=== PATIENT | male | born 1950 | race Caucasian/White ===

== ENCOUNTER 2020-12-24 16:45 | Outpatient (CLI) | payer MEDICARE, SELFPAY | END 2020-12-24 16:46 | disposition home or self-care (01) | LOC: ANHCOVIDVC 16:45 | PROVIDERS: PCP Family Medicine; Visit Provider Internal Medicine Cardiovascular Disease | DX: Z23 Encounter for immunization (principal) | CPT/HCPCS: 0001A; 91300 ==

== ENCOUNTER 2021-01-14 16:41 | Outpatient (CLI) | payer MEDICARE, SELFPAY | END 2021-01-14 16:42 | disposition home or self-care (01) | LOC: ANHCOVIDVC 16:42 | PROVIDERS: PCP Family Medicine | DX: Z23 Encounter for immunization (principal) | CPT/HCPCS: 0002A; 91300 ==

== ENCOUNTER 2023-10-17 09:55 | Emergency (ER) | payer MEDICARE, SELFPAY ==
--- NOTE | ~2023-10-17 | XR_ITS ---
XR chest 2V DATE: 10/17/2023 11:16 INDICATION: Cough, shortness of breath TECHNIQUE: 2 views COMPARISON: 05/24/2012 two-view chest FINDINGS: There is patchy infiltrate in the right mid and both lower lungs. Chronic mild right diaphragmatic elevation. No pleural effusion or pulmonary vascular congestion or pneumothorax is evident. Normal heart size. IMPRESSION: Patchy right mid and bilateral lower lung infiltrate Reviewed, dictated and finalized at location A. [employer]
[2023-10-17 10:48] VITALS: BP 131/70; PULSE 75; RESP 18; TEMP 36.9; O2SAT 98
--- NOTE | 2023-10-17 11:00 | ED.URI ---
HPI - URI/Sore Throat General Chief Complaint: Upper Respiratory Infection Stated Complaint: cold / flu like symptoms Time Seen by Provider: 10/17/23 10:38 Source: patient Mode of arrival: ambulatory Limitations: no limitations History of Present Illness HPI Narrative: Felix is a 73-year-old male patient presenting to clinic today with complaints cough, congestion, nausea, vomiting, diarrhea, headache, mild shortness of breath x9 days. Reports he is coughing up some green phlegm as well as blowing out green snot from his nose. MD elicited complaint: cough, sore throat and nasal congestion Related Data Home Medications Medication Instructions Recorded Confirmed ascorbic acid (vitamin C) 1,000 mg 1 g PO DAILY 09/13/19 09/13/19 tablet aspirin 81 mg chewable tablet 81 mg PO DAILY 09/13/19 09/13/19 calcium carbonate 600 mg-vitamin 1 tablet PO 09/13/19 D3 10 mcg (400 unit) chewable tablet (Calcium 600 with Vitamin D3) cholecalciferol (vitamin D3) 125 5,000 unit PO DAILY 09/13/19 09/13/19 mcg (5,000 unit) tablet (Vitamin D3) clopidogrel 75 mg tablet 75 mg PO DAILY 09/13/19 09/13/19 ezetimibe 10 mg tablet (Zetia) 10 mg PO DAILY 09/13/19 09/13/19 fluticasone furoate 27.5 2 spray intranasal DAILY 09/13/19 09/13/19 mcg/actuation nasal spray,suspension metoprolol tartrate 25 mg tablet 25 mg PO DAILY 09/13/19 09/13/19 multivitamin 1 cap DAILY 09/13/19 09/13/19 omega 5-wug-ojz-fish oil 1,000 mg 1 cap PO DAILY 09/13/19 09/13/19 (120 mg-180 mg) capsule (Fish Oil) pravastatin 80 mg tablet 80 mg PO HS 09/13/19 09/13/19 Allergies Allergy/AdvReac Type Severity Reaction Status Date / Time No Known Allergies Allergy Verified 10/17/23 11:01 Review of Systems Review of Systems: Pertinent positives per HPI. Patient denies any fever, chills, rash, headache, visual changes, dizziness, shortness of breath, chest pain, palpitations, nausea, vomiting, diarrhea, constipation, abdominal pain, or any urinary issues. PMFSH Comments At the time of my signature, I reviewed and agree with the nursing past medical, surgical, social, and family history. There is no relevant family history pertinent to the patient complaint. Exam Narrative: General: Well-developed, well nourished, in no apparent distress Head: Normocephalic, atraumatic Eyes: Pupils equally round and reactive to light bilaterally, EOM intact, sclera and conjunctive clear, no discharge, lids normal Ears: TMs intact and clear, ear canals clear, no drainage, grossly hearing normal. Nose: Nares patent, green nasal discharge, moderate inflammation, no sinus tenderness. Mouth: Oral pharynx red without lesions or masses, good dentition, MMM. Neck: Supple, trachea midline, no enlargement of anterior or posterior cervical nodes, no thyroid masses or goiter palpable. Cardio: Regular rate and rhythm, s1 and s2 normal, no murmur appreciated. Resp: Crackles heard over the bilateral lower bases, no rhonchi, rales, wheezing or rubs Course Course Emergency Course: Portions of this record may have been created with voice recognition software. Level of Care: Express Care Visit Vital Signs Vital signs: Vital Signs Temperature 36.9 C 10/17/23 10:48 Pulse Rate 75 10/17/23 10:48 Respiratory Rate 18 10/17/23 10:48 Blood Pressure 131/70 10/17/23 10:48 Pulse Oximetry 98 10/17/23 10:48 Oxygen Delivery Room Air 10/17/23 10:48 Temperature 36.9 C 10/17/23 10:48 Pulse Rate 75 10/17/23 10:48 Respiratory Rate 18 10/17/23 10:48 Blood Pressure 131/70 10/17/23 10:48 Pulse Oximetry 98 10/17/23 10:48 Oxygen Delivery Room Air 10/17/23 10:48 Vital signs reviewed MDM - URI/Sore Throat MDM Narrative Medical decision making narrative: At the time of visit patient is resting comfortably on the exam table. Patient appears to be nontoxic. Chest x-ray was performed and shows pneumonia to the right middle lobe and bibasilar
== END 2023-10-17 11:37 | disposition home or self-care (01) ==
PROVIDERS: Emergency Provider Nurse Practitioner Family; PCP Family Medicine
DX: J18.9 Pneumonia, unspecified organism (principal)
CPT/HCPCS: 71046; 99213; G0463

== ENCOUNTER 2024-03-27 14:45 | Emergency (ER) | payer MEDICARE, SELFPAY ==
--- NOTE | ~2024-03-27 | XR_ITS ---
EXAMINATION: XR chest 2V DATE: 03/27/2024 15:17 INDICATION: Cough. Chest congestion. TECHNIQUE: Frontal and lateral views of the chest were obtained. COMPARISON: Chest 2 views 10/17/2023 FINDINGS: There is stable mild elevation of right hemidiaphragm. There is mild atelectasis at the ortega g bases. No pleural effusion or pneumothorax. The heart size is normal. There is an old healed fractu re of right eighth rib. IMPRESSION: 1. Mild atelectasis at the lung bases. Reviewed, dictated and finalized at location A.
--- NOTE | 2024-03-27 14:48 | ED.URI ---
HPI - URI/Sore Throat General Chief Complaint: Upper Respiratory Infection Stated Complaint: Cold symptoms Time Seen by Provider: 03/27/24 14:48 Source: patient Mode of arrival: ambulatory Limitations: no limitations History of Present Illness HPI Narrative: Felix is a 73-year-old male patient presenting to the clinic today with complaints cough with yellow phlegm, chest congestion, and head congestion for the past 3-4 days. He reports no known fever or chills. States that he tried to get a hold of his primary care doctor but the doctor is out of town. States he usually gets a Z-Naldo for the symptoms. I saw him in the urgent care back in September and he had double pneumonia at that time. Denies any shortness of breath. MD elicited complaint: sore throat and nasal congestion Related Data Home Medications Medication Instructions Recorded Confirmed ascorbic acid (vitamin C) 1,000 mg 1 g PO DAILY 09/13/19 09/13/19 tablet aspirin 81 mg chewable tablet 81 mg PO DAILY 09/13/19 09/13/19 calcium carbonate 600 mg-vitamin 1 tablet PO 09/13/19 D3 10 mcg (400 unit) chewable tablet (Calcium 600 with Vitamin D3) cholecalciferol (vitamin D3) 125 5,000 unit PO DAILY 09/13/19 09/13/19 mcg (5,000 unit) tablet (Vitamin D3) clopidogrel 75 mg tablet 75 mg PO DAILY 09/13/19 09/13/19 ezetimibe 10 mg tablet (Zetia) 10 mg PO DAILY 09/13/19 09/13/19 fluticasone furoate 27.5 2 spray intranasal DAILY 09/13/19 09/13/19 mcg/actuation nasal spray,suspension metoprolol tartrate 25 mg tablet 25 mg PO DAILY 09/13/19 09/13/19 multivitamin 1 cap DAILY 09/13/19 09/13/19 omega 6-vgh-ank-fish oil 1,000 mg 1 cap PO DAILY 09/13/19 09/13/19 (120 mg-180 mg) capsule (Fish Oil) pravastatin 80 mg tablet 80 mg PO HS 09/13/19 09/13/19 albuterol sulfate 90 mcg/actuation 2 puff inhalation Q4-6H shortness 03/27/24 aerosol inhaler of breath or wheezing Allergies Allergy/AdvReac Type Severity Reaction Status Date / Time No Known Allergies Allergy Verified 03/27/24 14:57 Review of Systems Review of Systems: Pertinent positives per HPI. Patient denies any fever, chills, rash, headache, visual changes, dizziness, cough, shortness of breath, chest pain, palpitations, nausea, vomiting, diarrhea, constipation, abdominal pain, or any urinary issues. PMFSH Comments At the time of my signature, I reviewed and agree with the nursing past medical, surgical, social, and family history. There is no relevant family history pertinent to the patient complaint. Exam Narrative: General: Well-developed, well nourished, in no apparent distress Head: Normocephalic, atraumatic Eyes: Pupils equally round and reactive to light bilaterally, EOM intact, sclera and conjunctive clear, no discharge, lids normal Ears: TMs intact and clear, ear canals clear, no drainage, grossly hearing normal. Nose: Nares patent, clear discharge, no inflammation, no sinus tenderness. Mouth: Oral pharynx without lesions or masses, good dentition, MMM. Neck: Supple, trachea midline, no enlargement of anterior or posterior cervical nodes, no thyroid masses or goiter palpable. Cardio: Regular rate and rhythm, s1 and s2 normal, no murmur appreciated. Resp: Faint crackles in the right lower posterior base, no rhonchi, wheezing or rubs Course Course Emergency Course: Portions of this record may have been created with voice recognition software. Level of Care: Express Care Visit Vital Signs Vital signs: Vital Signs Temperature 36.8 C 03/27/24 14:56 Pulse Rate 67 03/27/24 14:56 Respiratory Rate 18 03/27/24 14:56 Blood Pressure 138/66 03/27/24 14:56 Pulse Oximetry 97 03/27/24 14:56 Oxygen Delivery Room Air 03/27/24 14:56 Temperature 36.8 C 03/27/24 14:58 Pulse Rate 67 03/27/24 14:58 Respiratory Rate 18 03/27/24 14:58 Blood Pressure 138/66 03/27/24 14:58 Pulse Oximetry 97 03/27/24 14:58 Oxygen Delivery Room Air 03/27/24
[2024-03-27 14:56] VITALS: BP 138/66; PULSE 67; RESP 18; TEMP 36.8; O2SAT 97
[2024-03-27 14:58] VITALS: BP 138/66; PULSE 67; RESP 18; TEMP 36.8; O2SAT 97
== END 2024-03-27 15:27 | disposition home or self-care (01) ==
PROVIDERS: Emergency Provider Nurse Practitioner Family; PCP Family Medicine
DX: J06.9 Acute upper respiratory infection, unspecified (principal); J98.11 Atelectasis; E78.00 Pure hypercholesterolemia, unspecified; K21.9 Gastro-esophageal reflux disease without esophagitis; Z79.82 Long term (current) use of aspirin
CPT/HCPCS: 71046; 99213; G0463

== ENCOUNTER 2024-12-06 14:00 | Emergency (ER) | payer MEDICARE, SELFPAY ==
--- NOTE | ~2024-12-06 | XR_ITS ---
EXAMINATION: XR chest 2V DATE: 12/06/2024 14:32 INDICATION: Cough. Chest pain. TECHNIQUE: Frontal and lateral views of the chest were obtained. COMPARISON: Chest 2 views 04/23/24 FINDINGS: There is chronic mild elevation of right hemidiaphragm. A calcified right lung nodule is co nsistent with old granulomatous disease. No pleural effusion or pneumothorax. The heart size is mukesh l. IMPRESSION: 1. No acute cardiopulmonary disease. Reviewed, dictated and finalized at location A. H NP
--- NOTE | 2024-12-06 14:03 | ED.GENADULT ---
HPI - General Adult General Chief complaint: Upper Respiratory Infection Stated complaint: flu symptoms Time Seen by Provider: 12/06/24 14:04 Source: patient Mode of arrival: wheelchair Limitations: no limitations History of Present Illness HPI narrative: Here with flu symptoms. He reports a 3 day history of cough, nasal congestion, nasal drainage, headache, and some chest pain with cough that started this morning. He reports a feeling of mucus that is getting caught in the breathing tubes area (points to upper chest near where trachea meets the mainstem bronchi). He reports a history of pneumonia, and is wanting to be evaluated for possible pneumonia today. He is using lxwb-[id number]-uosjths cough medicine and DayQuil with some relief. He is also using cough drops and Tylenol as needed. He denies any fevers. He denies nausea, vomiting, or diarrhea. All other systems reviewed and are negative unless otherwise noted in HPI. Related Data Home Medications ?Medication ?Instructions ?Recorded ?Confirmed ?Last Taken ?Type ascorbic acid (vitamin C) 1,000 mg 1 g PO DAILY 09/13/19 09/13/19 09/12/19 History tablet aspirin 81 mg chewable tablet 81 mg PO DAILY 09/13/19 09/13/19 09/13/19 History calcium 600 mg (as carbonate)-vit 1 tablet PO 09/13/19 09/12/19 History D3 10 mcg (400 unit) chewable tablet (Calcium 600 with Vitamin D3) cholecalciferol (vitamin D3) 125 5,000 unit PO DAILY 09/13/19 09/13/19 09/12/19 History mcg (5,000 unit) tablet (Vitamin D3) clopidogrel 75 mg tablet 75 mg PO DAILY 09/13/19 09/13/19 09/13/19 History ezetimibe 10 mg tablet (Zetia) 10 mg PO DAILY 09/13/19 09/13/19 09/13/19 History fluticasone furoate 27.5 2 spray intranasal DAILY 09/13/19 09/13/19 09/13/19 History mcg/actuation nasal spray,suspension metoprolol tartrate 25 mg tablet 25 mg PO DAILY 09/13/19 09/13/19 09/13/19 History multivitamin 1 cap DAILY 09/13/19 09/13/19 Unknown History omega 7-stj-zju-fish oil 1,000 mg 1 cap PO DAILY 09/13/19 09/13/19 09/12/19 History (120 mg-180 mg) capsule (Fish Oil) pravastatin 80 mg tablet 80 mg PO HS 09/13/19 09/13/19 09/12/19 History albuterol sulfate 90 mcg/actuation 2 puff inhalation Q4-6H shortness 03/27/24 Unknown History aerosol inhaler of breath or wheezing Allergies Allergy/AdvReac Type Severity Reaction Status Date / Time No Known Allergies Allergy Verified 12/06/24 14:19 Review of Systems Review of Systems: CONSTITUTIONAL: Denies fever, chills, or sweats. EYES: Denies visual changes, redness, or discharge. ENT: Reports rhinorrhea and congestion. Denies sore throat, or otalgia. Wears hearing aids. CARDIOVASCULAR: Denies palpitations or edema. RESPIRATORY: Denies dyspnea. Reports cough and some pain in the ribs/chest area while coughing. GASTROINTESTINAL: Denies abdominal pain, nausea, vomiting, or diarrhea. GENITOURINARY: Denies dysuria or hematuria. SKIN: Denies rash or itching. MUSCULOSKELETAL: Denies back pain, joint pain, or myalgia. NEUROLOGIC: Denies numbness or weakness. Reports headache. PSYCHIATRIC: Denies anxiety or depression. All other systems reviewed are negative, except as documented in HPI. Exam Narrative: GENERAL: This is a well-nourished, well-developed patient, in no apparent distress. HEAD: normocephalic, atraumatic. EYES: PERRL. Sclera clear/white. Vision is grossly intact. EARS: External ears normal, auditory canals clear and without drainage, TMs with serous fluid without perforation. No TM erythema. Hearing grossly intact with hearing aids. NOSE: External nose normal. + nares with redness and rhinorrhea. THROAT: Mucous membranes moist, posterior pharynx slight erythema. No exudates. NECK: Neck supple, non-tender without lymphadenopathy. CARDIOVASCULAR: Regular rate and rhythm without murmurs, gallops, or rubs. RESPIRATORY: Breath sounds equal bilaterally. +mild wheeze with cough, otherwise no wheezing in LS. SKIN: warm, Dry, intact with no suspicious lesions or rash, good texture and turgor. NEURO: awake, alert, and oriented to person, place and time. There were no obvious focal neurologic abnormalities. EXTREMITIES: No joint tenderness, effusion, or edema noted. Course Course Emergency Course: Patient is aware of diagnosis, understands and agrees to treatment plan. Anticipatory guidance was given. Patient agrees to follow-up as directed and is aware of reasons to seek care at the emergency department. Please be advised this is a medical document. It is intended for [id number] communication. It is written in medical language and may contain unfamiliar abbreviations or verbiage. Medical documents are intended to carry relevant information, facts as evident, and the clinical opinion of the practitioner at the time of the encounter. This report may have been done utilizing a voice recognition system. Attempts have been made to correct errors. However, there may be uncorrected grammatical, spelling, and recognition errors present. The file time of this note does not necessarily represent the time the patient was seen. Level of Care: Express Care Visit Vital Signs Vital signs: Vital Signs Temperature 36.4 C 12/06/24 14:12 Pulse Rate 61 12/06/24 14:12 Respiratory Rate 18 12/06/24 14:12 Blood Pressure 147/86 H 12/06/24 14:12 Pulse Oximetry 98 12/06/24 14:12 Oxygen Delivery Room Air 12/06/24 14:12 Temperature 36.4 C 12/06/24 14:12 Pulse Rate 61 12/06/24 14:12 Respiratory Rate 18 12/06/24 14:12 Blood Pressure 147/86 H 12/06/24 14:12 Pulse Oximetry 98 12/06/24 14:12 Oxygen Delivery Room Air 12/06/24 14:12 reviewed Medical Decision Making MDM Narrative Medical decision making narrative: Results of flu test reviewed with patient. Patient was positive for Flu A, and negative for Flu B and COVID. X-ray results discussed with patient and he was provided a printed copy of the report. Discussed physical exam findings with patient and reviewed prescriptions. Advised supportive measures and reviewed signs and symptoms for patient to return to clinic or go to the ER. Patient verbalized understanding. Vital Signs Vital Signs: Vital Signs Temperature 36.4 C 12/06/24 14:12 Pulse Rate 61 12/06/24 14:12 Respiratory Rate 18 12/06/24 14:12 Blood Pressure 147/86 H 12/06/24 14:12 Pulse Oximetry 98 12/06/24 14:12 Oxygen Delivery Room Air 12/06/24 14:12 Temperature 36.4 C 12/06/24 14:12 Pulse Rate 61 12/06/24 14:12 Respiratory Rate 18 12/06/24 14:12 Blood Pressure 147/86 H 12/06/24 14:12 Pulse Oximetry 98 12/06/24 14:12 Oxygen Delivery Room Air 12/06/24 14:12 Reviewed. BP elevated today likely related to OTC cold medications. Reviewed recommendations to use medications that do not raise blood pressure for symptom relief such as Coricidin HBP. Patient verbalized understanding. Lab Data Labs: Lab Results 12/06/24 Range/Units 14:24 POC Influenza A Ag Positive (Negative) POC Influenza B Ag Negative (Negative) POC SARS CoV-2 Ag Negative (Negative) reviewed. Imaging Data My impression: Agree with radiologist. Radiologist's impression: EXAMINATION: XR chest 2V DATE: 12/06/2024 14:32 INDICATION: Cough. Chest pain. TECHNIQUE: Frontal and lateral views of the chest were obtained. COMPARISON: Chest 2 views 04/23/24 FINDINGS: There is chronic mild elevation of right hemidiaphragm. A calcified right lung nodule is consistent with old granulomatous disease. No pleural effusion or pneumothorax. The heart size is normal. IMPRESSION: 1. No acute cardiopulmonary disease. Discharge Plan Discharge Clinical Impression: Bronchitis, Influenza A Patient Disposition: Home, Self-Care Condition: Stable Instructions: Antibiotic Form, Influenza (DC), Acute Bronchitis (ED), Acute Cough (ED) Additional Instructions: You were diagnosed today with influenza a and bronchitis. Cover all coughs. Push fluids and eat foods that contain fluid such as applesauce. Rest. Wear a mask when leaving the house until you are fever free for 24 hours. Avoid going places where you may come in contact with people who are immunocompromised. Do not share eating or drinking utensils. Use good handwashing techniques. You may use [id number] Tylenol and/or ibuprofen by mouth as needed and as directed on packaging for pain and fever. Read packing of all over the counter medications and take them only as recommended on the label. Avoid medications that increase your blood pressure, and try products that do not increase blood pressure such as Coricidin products. Take medications as prescribed. Follow printed instructions provided. Follow-up with primary care provider, and have blood pressure checked at your follow up visit. Go to the ER for any worsening symptoms or concerns. Patient Language: Latvian Prescriptions: New azithromycin 250 mg tablet See Rx Instructions .ROUTE .COMPLEX Qty: 6 0RF Rx Instructions: For 250 mg dose pack: take 500 mg today (day 1), then 250 mg for 4 days (days 2-5) benzonatate 200 mg capsule 200 mg PO TID PRN (Reason: cough) Qty: 15 0RF methylprednisolone [Medrol (Naldo)] 4 mg tablets,dose pack See Rx Instructions PO .COMPLEX Qty: 21 0RF Rx Instructions: orally per package directions No Action albuterol sulfate 90 mcg/actuation HFA aerosol inhaler 2 puff inhalation Q4-6H prednisone 20 mg tablet 40 mg PO DAILY 5 Days Qty: 10 0RF clopidogrel 75 mg Tablet 75 mg PO DAILY pravastatin 80 mg Tablet 80 mg PO HS aspirin 81 mg Tablet,Chewable 81 mg PO DAILY multivitamin Capsule 1 cap DAILY ezetimibe [Zetia] 10 mg Tablet 10 mg PO DAILY metoprolol tartrate 25 mg Tablet 25 mg PO DAILY fluticasone furoate 27.5 mcg/actuation [place],Suspension 2 spray INTRANASAL DAILY ascorbic acid (vitamin C) 1,000 mg Tablet 1 g PO DAILY Calcium 600 with Vitamin D3 600 mg(1,500mg) -400 unit Tablet,Chewable 1 tablet PO cholecalciferol (vitamin D3) [Vitamin D3] 5,000 unit Tablet 5,000 unit PO DAILY omega 3-dvv-wza-fish oil [Fish Oil] 1,000 mg (120 mg-180 mg) Capsule 1 cap PO DAILY esomeprazole magnesium 20 mg capsule,delayed release(DR/EC) 20 mg PO DAILY Qty: 30 0RF Follow-up/Referrals: Tor,MD Matty [Primary Care Provider] - Time of Disposition: 14:57
--- OUTSIDE RECORDS SUMMARY | 2024-12-06 14:05 | XMS_ITS | Data Portability ---
Author Organization [place] [facility] [employer], Main Office Address [address] [place] [address] Care Team Providers Care Senior Client Advisor Name Role Phone MATTY LENTZ Primary Care Provider [phone] Assessment Encounter Date Assessment Date Assessment LastModified by Organization Details LastModified Time 05/29/2024 05/29/2024 Assessment: Cough Dyspnea Right hemidiaphragm elevation Bibasilar atelectasis Plan: The following were reviewed and explained to the patient: primary care/referral note Chest 2 views 03/27/24 right hemidiaphragm elevation, bibasilar atelectasis Incentive spirometer x 5 minutes every 2 hours while awake to reverse and prevent further atelectasis. Cough/Dyspnea workup will be done as follows: Respiratory allergen panel for [facility] Serum IgE Serum total IgG, IgG1, IgG2, IgG3, IgG4 Xsmgi-2-tlcdrzmhzom phenotype and level TB stimulated gamma interferon B-type natriuretic peptide (BNP) Eosinophil count Complete pulmonary function testing (PFT) Sniff test for right hemidiaphragm Adherence to therapy is advocated. Nonadherence may lead to treatment failure, further progression of the condition, and other complications. Hospitals admissions are often the result of individuals not taking prescription medications accurately. Alternatively, greater adherence to medication regimens have shown to lower rates of hospitalization and decrease total medical costs in patients with chronic medical conditions. Advocated influenza vaccination annually and pneumonia vaccination [place]. Advocated weight loss through diet and exercise. Patient's ideal body weight according to height and gender is up to 155 lbs. Encouraged patient to adjust caloric intake to maintain/achieve ideal body weight, emphasizing on fruits, vegetables, whole grains, and fat-free or low-fat products. These include lean meats, poultry, fish, beans, eggs, and nuts and foods that are low in saturated fats, trans-fats, cholesterol, salt (sodium), and glycemic index. Stressed the importance of regular exercise up to the patient's capacity limits. In this case, we recommend 20 min daily walking, 2 days a week of resistance training. Patient to monitor BP daily and bring records to PCP for further management. 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 Annual labs: 02/23/22. Annual labs: 02/26/21. Annual labs: 10/04/19. Annual labs at [place]: 10/13/18. EKG & CXR: 10/11/18. X-ray Rt le08/15/18. Annual labs: 03/28/18. D/w pt about his findings, recent Labs & imagines and further plan of care. Will do routine labs. Pt still declined for any imagines. Pt declined for any repeat lab after 3-6 months and wants to come here annually. Pt declined for Metformin for his Pre-DM. All meds verified with pt. Meds as directed. Cont OTC shoe inserts as directed prn. Diet and exercise explained in detail. Fall risk precautions explained. BP diary education given and call us if any concerns. Advised pt to f/u with his cardio regarding anticoagulation regimen. Pt agreed. Educated pt about alarming symptoms to monitor at home and call us back or get checked in ED. Cont f/u with Cardio at [facility] as per schedule. Cont f/u with Derm at [facility] as per schedule. Cont f/u with Ophtho at [facility] as per schedule. Cont f/u with GI at [facility] as per schedule. Cont f/u with ENT at [facility] as per schedule. Pt had orders for work up for elevated LFTs in the past, but pt decided not to go for it. Pt declined for LDCT chest/US AAA/repeat DEXA. HM: Colonoscopy - 01/09, normal as per pt. Cont f/u with GI as per schedule. US AAA - Pt declined. DEXA - 10/10/18, Osteopenia ++. Pt declined for any future scan. Tdap - 06/04/15. Flu - 08/14. Pneumo - 06/08, 08/10. Shingrix - At pharmacy/HD. F/u in 2-3 weeks. B/l ear flushing on next visit. Annual labs in 03/17. 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 CXR: 03/27/24. Annual labs: 02/23/22. Annual labs: 02/26/21. Annual labs: 10/04/19. Annual labs at [place]: 10/13/18. EKG & CXR: 10/11/18. X-ray Rt le08/15/18. Annual labs: 03/28/18. D/w pt about his findings, recent Labs & imagines and further plan of care. Pt declined for any repeat lab/A1c check after 3-4 months and wants to come here annually. Pt declined for Metformin for his Pre-DM. All meds verified with pt. Meds as directed. Cont OTC shoe inserts as directed prn. Diet and exercise explained in detail. Fall risk precautions explained. BP diary education given and call us if any concerns. Advised pt to f/u with his cardio regarding anticoagulation regimen. Pt agreed. Educated pt about alarming symptoms to monitor at home and call us back or get checked in ED. Cont f/u with Pulmo as per schedule. Cont f/u with Cardio at [facility] as per schedule. Cont f/u with Derm at [facility] as per schedule. Cont f/u with Ophtho at [facility] as per schedule. Cont f/u with GI at [facility] as per schedule. Cont f/u with ENT at [facility] as per schedule. Pt had orders for work up for elevated LFTs in the past, but pt decided not to go for it. Pt declined for LDCT chest/US AAA/repeat DEXA. HM: Colonoscopy - 01/09, normal as per pt. Cont f/u with GI as per schedule. US AAA - Pt declined. DEXA - 10/10/18, Osteopenia ++. Pt declined for any future scan. Tdap - 06/04/15. Flu - 08/14. Pneumo - 06/08, 08/10. Shingrix - At pharmacy/HD. F/u PRN/Annually (Pt doesn't want to come sooner). Annual labs in 06/18. [email or web address] Not available 07/04/2024 09:40:50 07/18/2024 07/18/2024 Assessment: Cough, resolving Right hemidiaphragm elevation, no paralysis Bibasilar atelectasis Plan: The following were reviewed and explained to the patient: Chest 2 views 03/27/24 right hemidiaphragm elevation, bibasilar atelectasis Fluoroscopy sniff test 06/14/24 mild right hemidiaphragm elevation but no paralysis, normal symmetric excursions of both hemidiaphragm Lab data 05/29/24 PFT 07/18/24 nl FEV1/FVC, FEV1 2.51 L (100%), TLC 5.56 L (101%), RV 1.95 L (84%), DLCO 101% Cough may be the initial manifestation of drug-related airway hyper-responsiveness or bronchoconstriction that is described with -blockers; associated wheeze and dyspnea may occur. -blockers (including eye drops) cause bronchoconstriction via bronchial 2 receptor blockade. A meta-analysis has confirmed no evidence of long-term decline in lung function in reversible obstructive lung disease with cardio-selective -blockers (atenolol, metoprolol, bisoprolol). A short-term decline of 8% in forced expiratory volume in 1 second (FEV1) was seen, but this was not sustained. In addition, ferry terminal agent respiratory symptoms and use of inhaled -agonists were not increased. Carvedilol has also been shown to be well tolerated (in terms of lung function indices and aerobic performance) despite being a non-selective -tani, possibly because of mild bronchodilation from its -blocking activity. Incentive spirometer x 5 minutes every 2 hours while awake to reverse and prevent further atelectasis. Cough/Dyspnea workup will be done as follows: Methacholine challenge testing - patient does not desire further testing Adherence to therapy is advocated. Nonadherence may lead to treatment failure, further progression of the condition, and other complications. Hospitals admissions are often the result of individuals not taking prescription medications accurately. Alternatively, greater adherence to medication regimens have shown to lower rates of hospitalization and decrease total medical costs in patients with chronic medical conditions. Advocated influenza vaccination annually and pneumonia vaccination [place]. Advocated weight loss through diet and exercise. Patient's ideal body weight according to height and gender is up to 155 lbs. Encouraged patient to adjust caloric intake to maintain/achieve ideal body weight, emphasizing on fruits, vegetables, whole grains, and fat-free or low-fat products. These include lean meats, poultry, fish, beans, eggs, and nuts and foods that are low in saturated fats, trans-fats, cholesterol, salt (sodium), and glycemic index. Stressed the importance of regular exercise up to the patient's capacity limits. In this case, we recommend 20 min daily walking, 2 days a week of resistance training. Patient to monitor BP daily and bring records to PCP for further management. Follow-up: as needed Not available 07/18/2024 15:31:49 Plan of Treatment Reminders Order Date Submit Date Provider Last Modified By Organization Details Last Modified Time Details Appointments Physical/ Annual Wellness 30 2024 08:30A Eyad Lentz MD Not available Not available Not available Lab alpha-1-a ntitrypsi n (aat) phenotype , serum 2023 024 [facility] ([facility] [address] [place], [address], 06/03/2024 18:11:32 BNP (B-type natriuret ic peptide), serum or plasma 2023 024 BRENDA [facility] (Lab), [address] [place], [address], 05/29/2024 15:53:24 ige, total, serum 2023 024 [email or web address] 2 [facility] (Lab), [address] [place], [address], 10/04/2024 14:08:12 tb (M tuberculo sis), ifn-gamma bernabe, blood 2023 024 [email or web address] 2 [facility] (Lab), [address] [place], [address], 10/04/2024 14:08:12 eosinophi l count, manual, blood (OBS) 2023 024 [email or web address] 2 [facility] (Lab), [address] [place], [address], 10/04/2024 14:08:13 [address] s 1+2+3+4, serum 2023 024 [email or web address] 2 [facility] (Lab), [address] [place], [address], 10/04/2024 14:08:13 respirato ry allergen panel, [facility] A, serum 2023 024 [email or web address] 2 [facility] (Lab), [address] [place], [address], 10/04/2024 14:08:13 respirato ry allergen panel - [facility] b 2023 024 2 [facility] (Lab), [address] [place], [address], 10/04/2024 14:08:13 CBC w/ auto diff 2023 024 [facility] (Lab), [address] [place], [address], 06/14/2024 14:02:01 CMP, serum or plasma 2023 024 [facility] (Lab), [address] [place], [address], 06/14/2024 17:00:37 urinalysi s complete, reflex culture [address] (Lab), [address] [place], [address], 06/21/2024 08:38:17 magnesium , serum or plasma 2023 024 [facility] (Lab), [address] [place], [address], 06/14/2024 17:00:41 lipid panel, serum 2023 024 [facility] (Lab), [address] [place], [address], 06/14/2024 17:00:44 TSH, serum or plasma 2023 024 [facility] (Lab), [address] [place], [address], 06/14/2024 17:48:19 PSA, serum or plasma [address] (Lab), [address] [place], [address], 06/21/2024 08:38:17 vitamin D, 25-hydrox y, total, serum 2023 024 [email or web address] (Lab), [address] [place], [address], 06/21/2024 08:38:17 Referral None recorded. Procedures None recorded. Surgeries None recorded. Imaging RF, diaphragm - SNIFF TESTINGNo auth needed 2023 024 [facility] ([facility] [address] [place], [address], 06/14/2024 11:04:30 Medication Orders amoxicill in 875 mg-potass ium clavulana te 125 mg tablet [address] [id number], [address], [place], [id number], 05/14/2024 10:56:28 Medrol (Naldo) 4 mg tablets in a dose pack [address] [id number], [address], [place], [id number], 05/14/2024 10:57:01 benzonata te 200 mg capsule [address] [id number], [address], [place], [id number], 05/14/2024 10:56:34 Debrox 6.5 % ear drops 2023 024 [email or web address] [facility], [address] [place] [address], [address], 07/18/2024 15:08:07 Flonase Allergy Relief 50 mcg/actua tion nasal spray,jen pension 2023 024 [email or web address] [facility], [facility], [place], [address], 06/14/2024 14:38:50 esomepraz ole magnesium 20 mg capsule,d elayed release 2023 024 [facility], [place], [address], 06/14/2024 10:32:32 esomepraz ole magnesium 20 mg capsule,d elayed release 2023 024 [facility], [place] [address], 07/04/2024 09:30:29 Patient TargetsNo targets recorded. Patient Instructions Encounter Date Encounter Id Patient Instructions Last Modified By Organization Details Last Modified Time 05/29/2024 [id number] complete PFT w/ post bronchodilator spirometry* - No auth needed [email or web address] Not available 07/03/2024 12:40:44 Reason for Referral None Reported. Results Created Date Observation Date Name Description Value Unit Range Abnormal Flag Note LastModifiedBy Organization Detail LastModifiedTime 06/14/20 24 06/14/2024 CBC/C OMPLE TE BLD COUNT W/DIF F white blood cells 5.7 x10'3 /uL 4.2-10 .8 Not Available [facility] (Lab) [address] [place], [address], 06/14/2024 14:02:01 06/14/20 24 06/14/2024 CBC/C OMPLE TE BLD COUNT W/DIF F red blood cells 4.25 x10'6 /uL 4.10-5 .80 Not Available [facility] (Lab) [address] [place], [address], 06/14/2024 14:02:01 06/14/20 24 06/14/2024 CBC/C OMPLE TE BLD COUNT W/DIF F hemoglobin 13.1 g/dL 13.2-1 7.0 low Not Available [facility] (Lab) [address] [place], [address], 06/14/2024 14:02:01 08/21/20 24 06/14/2024 CBC/C OMPLE TE BLD COUNT W/DIF F hematocrit 40.2 % 39.3-5 0.0 Not Available [facility] (Lab) [address] [place], [address], 06/14/2024 14:02:01 06/14/20 24 06/14/2024 CBC/C OMPLE TE BLD COUNT W/DIF F mean red cell volume 94.6 fL 80.0-9 7.0 Not Available [facility] (Lab) [address] [place], [address], 06/14/2024 14:02:01 06/14/20 24 06/14/2024 CBC/C OMPLE TE BLD COUNT W/DIF F mean red cell hemoglobin 30.8 pg 27.0-3 3.0 Not Available [facility] (Lab) [address] [place], [address], 06/14/2024 14:02:01 06/14/20 24 06/14/2024 CBC/C OMPLE TE BLD COUNT W/DIF F mean RBC HGB concentratio n 32.6 g/dL 31.0-3 6.0 Not Available [facility] (Lab) [address] [place], [address], 06/14/2024 14:02:01 06/14/20 24 06/14/2024 CBC/C OMPLE TE BLD COUNT W/DIF F red cell distribution width 13.3 % 11.8-1 5.5 Not Available [facility] (Lab) [address] [place], [address], 06/14/2024 14:02:01 06/14/20 24 06/14/2024 CBC/C OMPLE TE BLD COUNT W/DIF F platelets 196 x10'3 /uL 150-40 0 Not Available [facility] (Lab) [address] [place], [address], 06/14/2024 14:02:01 06/14/20 24 06/14/2024 CBC/C OMPLE TE BLD COUNT W/DIF F mean platelet volume 11.8 fL 9.0-12 .4 Not Available [facility] (Lab) [address] [place], [address], 06/14/2024 14:02:01 06/14/20 24 06/14/2024 CBC/C OMPLE TE BLD COUNT W/DIF F neutrophils 65.3 % 39.0-7 2.0 Not Available [facility] (Lab) [address] [place], [address], 06/14/2024 14:02:01 06/14/20 24 06/14/2024 CBC/C OMPLE TE BLD COUNT W/DIF F lymphocytes 22.9 % 16.0-4 7.0 Not Available [facility] (Lab) [address] [place], [address], 06/14/2024 14:02:01 06/14/20 24 06/14/2024 CBC/C OMPLE TE BLD COUNT W/DIF F monocytes 8.4 % 5.0-12 .0 Not Available [facility] (Lab) [address] [place], [address], 06/14/2024 14:02:01 06/14/20 24 06/14/2024 CBC/C OMPLE TE BLD COUNT W/DIF F eosinophils 2.5 % 1.0-7. 0 Not Available [facility] (Lab) [address] [place], [address], 06/14/2024 14:02:01 06/14/20 24 06/14/2024 CBC/C OMPLE TE BLD COUNT W/DIF F basophils 0.7 % 0.0-2. 0 Not Available [facility] (Lab) [address] [place], [address], 06/14/2024 14:02:01 06/14/20 24 06/14/2024 CBC/C OMPLE TE BLD COUNT W/DIF F immature granulocytes 0.2 % 0.00-0 .50 Not Available [facility] (Lab) [address] [place], [address], 06/14/2024 14:02:01 06/14/20 24 06/14/2024 CBC/C OMPLE TE BLD COUNT W/DIF F neutrophils, absolute count 3.73 x10'3 /uL 1.5-8. 0 Not Available [facility] (Lab) [address] [place], [address], 06/14/2024 14:02:01 06/14/20 24 06/14/2024 CBC/C OMPLE TE BLD COUNT W/DIF F lymphocytes, absolute count 1.31 x10'3 /uL 1.07-3 .43 Not Available [facility] (Lab) [address] [place], [address], 06/14/2024 14:02:01 06/14/20 24 06/14/2024 CBC/C OMPLE TE BLD COUNT W/DIF F monocytes, absolute count 0.48 x10'3 /uL 0.29-0 .99 Not Available [facility] (Lab) [address] [place], [address], 06/14/2024 14:02:01 06/14/20 24 06/14/2024 CBC/C OMPLE TE BLD COUNT W/DIF F eosinophils, absolute count 0.14 x10'3 /uL 0.02-0 .53 Not Available [facility] (Lab) [address] [place], [address], 06/14/2024 14:02:01 06/14/20 24 06/14/2024 CBC/C OMPLE TE BLD COUNT W/DIF F basophils, absolute count 0.04 x10'3 /uL 0.01-0 .08 Not Available [facility] (Lab) [address] [place], [address], 06/14/2024 14:02:01 06/14/20 24 06/14/2024 CBC/C OMPLE TE BLD COUNT W/DIF F immature granulocytes ,absolute 0.01 x10'3 /uL 0.00-0 .05 Not Available [facility] (Lab) [address] [place], [address], 06/14/2024 14:02:01 06/14/20 24 06/14/2024 CBC/C OMPLE TE BLD COUNT W/DIF F nucleated red blood cells 0.0 % -0 Not Available [facility] (Lab) [address] [place], [address], 06/14/2024 14:02:01 06/14/20 24 06/14/2024 CBC/C OMPLE TE BLD COUNT W/DIF F NRBC# 0.00 x10'3 /uL Not Available [facility] (Lab) [address] [place], [address], 06/14/2024 14:02:01 06/14/20 24 06/14/2024 URINA LYSIS COMPL ETE/I RIS W/RFX color YELLOW Not Available [facility] (Lab) [address] [place], [address], 06/14/2024 14:08:26 06/14/20 24 06/14/2024 URINA LYSIS COMPL ETE/I RIS W/RFX appear CLEAR Not Available [facility] (Lab) [address] [place], [address], 06/14/2024 14:08:26 06/14/20 24 06/14/2024 URINA LYSIS COMPL ETE/I RIS W/RFX specific gravity 1.025 1.001- 1.030 Not Available [facility] (Lab) [address] [place], [address], 06/14/2024 14:08:26 06/14/20 24 06/14/2024 URINA LYSIS COMPL ETE/I RIS W/RFX pH 6.0 pH_un its 5.0-9. 0 Not Available [facility] (Lab) [address] [place], [address], 06/14/2024 14:08:26 06/14/20 24 06/14/2024 URINA LYSIS COMPL ETE/I RIS W/RFX leukocytes NEGATI VE radha/u L negati ve- Not Available [facility] (Lab) [address] [place], [address], 06/14/2024 14:08:26 06/14/20 24 06/14/2024 URINA LYSIS COMPL ETE/I RIS W/RFX nitrite NEGATI VE negati ve- Not Available [facility] (Lab) [address] [place], [address], 06/14/2024 14:08:26 06/14/20 24 06/14/2024 URINA LYSIS COMPL ETE/I RIS W/RFX protein NEGATI VE mg/dL negati ve- Not Available [facility] (Lab) [address] [place], [address], 06/14/2024 14:08:26 06/14/20 24 06/14/2024 URINA LYSIS COMPL ETE/I RIS W/RFX glucose NORMAL mg/dL normal - Not Available [facility] (Lab) [address] [place], [address], 06/14/2024 14:08:26 06/14/20 24 06/14/2024 URINA LYSIS COMPL ETE/I RIS W/RFX ketones NEGATI VE mg/dL negati ve- Not Available [facility] (Lab) [address] [place], [address], 06/14/2024 14:08:26 06/14/20 24 06/14/2024 URINA LYSIS COMPL ETE/I RIS W/RFX urobilinogen NORMAL mg/dL normal - Not Available [facility] (Lab) [address] [place], [address], 06/14/2024 14:08:26 06/14/20 24 06/14/2024 URINA LYSIS COMPL ETE/I RIS W/RFX bilirubin NEGATI VE mg/dL negati ve- Not Available [facility] (Lab) [address] [place], [address], 06/14/2024 14:08:26 06/14/20 24 06/14/2024 URINA LYSIS COMPL ETE/I RIS W/RFX blood NEGATI VE mg/dL negati ve- Not Available [facility] (Lab) [address] [place], [address], 06/14/2024 14:08:26 06/14/20 24 06/14/2024 URINA LYSIS COMPL ETE/I RIS W/RFX white blood cells 0-8 /i??h pfi?? 0-8 Not Available [facility] (Lab) [address] [place], [address], 06/14/2024 14:08:26 06/14/20 24 06/14/2024 URINA LYSIS COMPL ETE/I RIS W/RFX red blood cells 0-4 /i??h pfi?? 0-4 Not Available [facility] (Lab) [address] [place], [address], 06/14/2024 14:08:26 06/14/20 24 06/14/2024 URINA LYSIS COMPL ETE/I RIS W/RFX bacteria NONE Not Available [facility] (Lab) [address] [place], [address], 06/14/2024 14:08:26 06/14/20 24 06/14/2024 URINA LYSIS COMPL ETE/I RIS W/RFX mucous OCCASI ONAL /i??l pfi?? abnormal Not Available [facility] (Lab) [address] [place], [address], 06/14/2024 14:08:26 06/14/20 24 06/14/2024 URINA LYSIS COMPL ETE/I RIS W/RFX squamous epithelial NONE /i??l pfi?? abnormal Not Available [facility] (Lab) [address] [place], [address], 06/14/2024 14:08:26 06/14/20 24 06/14/2024 COMPR EHENS SHAUN METAB OLIC PANEL sodium 143 mmol/ L 137-14 5 Not Available [facility] (Lab) [address] [place], [address], 06/14/2024 21:38:56 06/14/20 24 06/14/2024 COMPR EHENS SHAUN METAB OLIC PANEL potassium 4.1 mmol/ L 3.5-5. 1 Not Available [facility] (Lab) [address] [place], [address], 06/14/2024 21:38:56 06/14/20 24 06/14/2024 COMPR EHENS SHAUN METAB OLIC PANEL chloride 110 mmol/ L 98-107 high Not Available [facility] (Lab) [address] [place], [address], 06/14/2024 21:38:56 06/14/20 24 06/14/2024 COMPR EHENS SHAUN METAB OLIC PANEL carbon dioxide 26 mmol/ L 22-30 Not Available [facility] (Lab) [address] [place], [address], 06/14/2024 21:38:56 06/14/20 24 06/14/2024 COMPR EHENS SHAUN METAB OLIC PANEL anion gap 11.1 mmol/ L 14-22 low Not Available [facility] (Lab) [address] [place], [address], 06/14/2024 21:38:56 06/14/20 24 06/14/2024 COMPR EHENS SHAUN METAB OLIC PANEL glucose 111 mg/dL 70-99 high Not Available [facility] (Lab) [address] [place], [address], 06/14/2024 21:38:56 06/14/20 24 06/14/2024 COMPR EHENS SHAUN METAB OLIC PANEL BUN 15 mg/dL 8-19 Not Available [facility] (Lab) [address] [place], [address], 06/14/2024 21:38:56 06/14/20 24 06/14/2024 COMPR EHENS SHAUN METAB OLIC PANEL creatinine 0.83 mg/dL 0.66-1 .25 Not Available [facility] (Lab) [address] [place], [address], 06/14/2024 21:38:56 06/14/20 24 06/14/2024 COMPR EHENS SHAUN METAB OLIC PANEL GFR >60 Refer ence Range : [place] [facility] GFR Healt hy Adult : >60 mL/mi n/1.7 3 m2 Chron ic Kidne y Disea se: 15-60 mL/mi n/1.7 3 m2 Kidne y Failu re: <15/m L/min /1.73 m2 [email or web address] The MDRD study equat ion has not been valid ated in child kike <18 years of age; pregn ant women ; the elder ly >85 years of age; or in some racia l or ethni c subgr oups, such as Hispa nics. Outsi de the valid ated terrell eters , estim ated GFR is less accur ate, requi ring clini joss judgm ent on a case- by-ca se basis . Clini joss inter preta tion for other races and ages must be made by the clini lesly. The MDRD study equat ion has not been valid ated for the evalu ation of serum creat inine relat ed to nutri libia l statu s or medic ation usage . For perso ns <18 years of age, a pedia tric GFR calcu lator is avail able on the F websi te: https ://sean w.ashish juarezy.o rg/pr ofess ional s/kdo qi/gf r_cal culat or Not Available [facility] (Lab) [address] [place], [address], 06/14/2024 21:38:56 06/14/20 24 06/14/2024 COMPR EHENS SHAUN METAB OLIC PANEL alkaline phosphatase 42 U/L 38-126 Not Available [facility] (Lab) [address] [place], [address], 06/14/2024 21:38:56 06/14/20 24 06/14/2024 COMPR EHENS SHAUN METAB OLIC PANEL alanine aminotransfe rase 30 U/L 0-50 Not Available [facility] (Lab) [address] [place], [address], 06/14/2024 21:38:56 06/14/20 24 06/14/2024 COMPR EHENS SHAUN METAB OLIC PANEL aspartate aminotransfe rase 39 U/L 15-46 Not Available [facility] (Lab) [address] [place], [address], 06/14/2024 21:38:56 06/14/20 24 06/14/2024 COMPR EHENS SHAUN METAB OLIC PANEL bilirubin, total 0.70 mg/dL 0.20-1 .30 Not Available [facility] (Lab) [address] [place], [address], 06/14/2024 21:38:56 06/14/20 24 06/14/2024 COMPR EHENS SHAUN METAB OLIC PANEL calcium 9.7 mg/dL 8.4-10 .2 Not Available [facility] (Lab) [address] [place], [address], 06/14/2024 21:38:56 06/14/20 24 06/14/2024 COMPR EHENS SHAUN METAB OLIC PANEL total protein 7.0 g/dL 6.3-8. 2 Not Available [facility] (Lab) [address] [place], [address], 06/14/2024 21:38:56 06/14/20 24 06/14/2024 COMPR EHENS SHAUN METAB OLIC PANEL albumin 4.3 g/dL 3.0-4. 4 Not Available [facility] (Lab) [address] [place], [address], 06/14/2024 21:38:56 06/14/20 24 06/14/2024 COMPR EHENS SHAUN METAB OLIC PANEL globulin 2.7 g/dL 2.6-4. 2 Not Available [facility] (Lab) [address] [place], [address], 06/14/2024 21:38:56 06/14/20 24 06/14/2024 COMPR EHENS SHAUN METAB OLIC PANEL A/G ratio 1.6 ratio 1.0-2. 0 Not Available [facility] (Lab) [address] [place], [address], 06/14/2024 21:38:56 06/14/20 24 06/14/2024 MAGNE SIUM magnesium 2.2 mg/dL 1.6-2. 3 Not Available [facility] (Lab) [address] [place], [address], 06/14/2024 17:00:41 06/14/20 24 06/14/2024 LIPID PANEL cholesterol 141 mg/dL 140-19 9 NIH TEJINDER NSUS RECOM MENDA TION FOR PIPPA STERO L: ADULT CHILD LOW RISK: <200 <170 BORDE RLINE : <200- 239 ----- HIGH RISK: >240 >200 Not Available [facility] (Lab) [address] [place], [address], 06/14/2024 17:00:44 06/14/20 24 06/14/2024 LIPID PANEL triglyceride s 97 mg/dL 0-150 NIH TEJINDER NSUS REPOR T RECOM MENDA TION FOR TRIGL YCERI RADHA: ADULT CHILD LOW RISK: <150 ----- BODER LINE: 150-1 99 ----- HIGH RISK: >200 ----- Not Available [facility] (Lab) [address] [place], [address], 06/14/2024 17:00:44 06/14/20 24 06/14/2024 LIPID PANEL HDL cholesterol 46 mg/dL 40- Not Available [facility] (Lab) [address] [place], [address], 06/14/2024 17:00:44 06/14/20 24 06/14/2024 LIPID PANEL LDL cholesterol, calculated 76 mg/dL 0-130 NIH TEJINDER NSUS REPOR T RECOM MENDA TIONS FOR LDL: ADULT CHILD LOW RISK <130 <110 (OPTI MAL LDL) <100 ----- BORDE RLINE : 130-1 59 ----- HIGH RISK: >160 >130 A TRIGL YCERI DE RESUL T >400 INVAL IDATE S THE CALCU LATIO N FOR LDL FRACT IONAT ION - THE LDL RESUL T WILL NOT BE REPOR ENDY. Not Available [facility] (Lab) [address] [place], [address], 06/14/2024 17:00:44 06/14/20 24 06/14/2024 VITAM IN D 25-HY DROXY [id number] 83.5 NG/mL 30-100 Vitam in D Statu s: Defic ient: <20 ng/mL Insuf ficie nt: 20-29 ng/mL Suffi cient : 30-10 0 ng/mL Not Available [facility] (Lab) [address] [place], [address], 06/14/2024 17:39:32 06/14/20 24 06/14/2024 PSA SCREE N PSA medicare screen 1.50 NG/mL 0.00-4 .00 Not Available [facility] (Lab) [address] [place], [address], 06/14/2024 17:48:18 06/14/20 24 06/14/2024 TSH thyroid-stim ulating hormone 2.860 uIU/m L 0.465- 4.680 Not Available [facility] (Lab) [address] [place], [address], 06/14/2024 17:48:19 03/27/20 24 03/27/2024 XR, chest , 2 view No observ ation record ed. [email or web address] [facility] [address], [place], [address], 04/03/2024 15:59:00 06/05/20 24 03/27/2024 XR, chest , 2 view No observ ation record ed. [email or web address] Not Available 2023 10:27:37 06/14/20 24 06/14/2024 imagi ng/di agnos tic resul t No observ ation record ed. [email or web address] [facility] [address] [place], [address], 07/04/2024 09:27:22 06/14/20 24 06/14/2024 RF, diaph ragm No observ ation record ed. [email or web address] [facility] ([facility]) [address] [place], [address], 07/04/2024 09:27:22 07/25/20 24 07/18/2024 compl ete PFT w/ post [facility] hodil ator lindsey metry * No observ ation record ed. BARCODE [facility] ([facility]) [address] [place], [address], 07/25/2024 11:08:02 Result Notes None recorded. Problems Name Problem SNOMED Code Status Onset Date Resolution Date Notes Provider Name and Address Organization Details Recorded Time Nocturia 407596402 Completed Not Available [facility] 3 07:33:24 Herpes labialis 2135524 Active Not Available [facility] 3 07:33:24 Pain in throat 085541955 Completed Not Available [facility] 3 07:33:24 Acariasis 815816675 Completed Not Available [facility] 3 07:33:24 Plantar fasciitis 853804621 Active Not Available [facility] 3 07:33:24 Gastroeso phageal reflux disease 107373682 Active Not Available [facility] 3 07:33:25 Fluid level behind tympanic membrane Completed Not Available [facility] 3 07:33:25 Anemia 487052885 Completed Not Available [facility] 3 07:33:25 Osteopeni a 891642630 Active 2018 Not Available [facility] 3 07:33:25 Vitamin D deficienc y 72329261 Completed 201703/11/2021 Matty Lentz MD [address], [place] [address], [place], [address] , [employer] [facility] [employer] 3 09:02:13 Hypertens shaun disorder 81898619 Active 2018 Not Available [facility] 3 07:33:26 Cramp in lower limb 739675892 Completed Not Available [facility] 3 07:33:26 Coronary arteriosc lerosis 67338613 Active Not Available [facility] 3 07:33:27 Upper respirato ry infection 32554240 Completed Matty Lentz MD [address], [facility] [address], [place], [address] , [employer] [facility] [employer] 4 09:18:49 Essential hypertens ion 19921516 Completed Not Available [facility] 3 07:33:27 Allergic rhinitis 80517896 Active 2017 Not Available [facility] 3 07:33:27 Prediabet es 566058807 Active 2018 Not Available [facility] 3 07:33:28 Posterior rhinorrhe a 22232917 Completed Not Available [facility] 3 07:33:28 Fatigue 68653384 Completed Esteban Nelson MD [address], [place], [address] , [facility] [employer] [facility] 4 10:52:42 Tinea corporis 73998109 Completed Not Available [facility] 3 07:33:28 Ex-smoker 4115390 Active 2021 Not Available [facility] 3 07:33:28 Bilateral hearing loss 00404570 Active 2017 Not Available [facility] 3 07:33:29 Hyperlipi demia 27192058 Active 2022 Matty Letnz MD [address], [place], [address] , [facility] [employer] [facility] 3 09:01:02 Vitamin D deficienc y 81329159 Active 2022 Matty Lentz MD [address], [address], [place], [address] , [employer] [facility] [employer] [facility] 3 09:02:13 Atelectas is 38436289 Active 2023 Esteban Nelson MD [address], [place], [address] , [facility] [facility] [employer] [facility] 4 11:44:32 Impacted cerumen of bilateral ears 00342728580 34946 Active 2023 Matty Lentz MD [address], [place], [address] , [facility] [facility] [employer] [facility] 4 10:35:12 Upper respirato ry infection 21702323 Active 2023 Matty Lentz MD [address], [place], [address] , [facility] 4 09:18:49 Gastroeso phageal reflux disease without esophagit is 998985555 Active 2023 Matty Lentz MD [address] [facility], [place] [address], [place], [address] , [facility] 4 09:18:49 Overweigh t 846191274 Active 2023 Matty Lentz MD [address] [address], [place], [address] , [facility] [employer] [facility] 4 09:40:42 Chronic cough 63182422 Active 2023 Esteban Nelson MD [address] [address], [place], [address] , [facility] [employer] [facility] 4 15:03:56 Notes:Medical History: Bilat eral hearing loss Left tinnitus HSV-1 infection Rhinitis Eosinophils 130/uL IgE 97 IU/mL AAT PiMM 142 mg% Right hemidiaphragm elevation without paralysis Bibasilar atelectasis Obesity Hypertension Hyperlipidemia Prediabetes CAD SHANIA Vit D deficiency Osteopenia Right 8th rib fracture Plantar fasciitis Procedure History: Left eye strabismus surgeries 1959, 1982 Right knee surgery 1994 Right lateral epicondylitis surgery 1997 Left hip fracture surgery 2004 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 Procedures Surgical History Date Name Laterality Status Provider Name and Address Organization Details Recorded Time 4 Ear Irrigation completed Matty Lentz MD [address] [address], [place], [address], [facility] [employer] [facility] 07/04/2024 09:19:27 Imaging Results Imaging Date Name Status LastModified by Organization Details LastModified Time 03/27/2024 XR, chest, 2 view completed [email or web address] [facility] [address], [place], [address], 04/03/2024 15:59:00 03/27/2024 XR, chest, 2 view completed Informa tion not available 06/14/2024 10:27:37 06/14/2024 imaging/diagnostic result active [email or web address] [facility] [address] [place], [address], 07/04/2024 09:27:22 06/14/2024 RF, diaphragm completed [email or web address] [facility] ([facility]) [address] [place], [address], 07/04/2024 09:27:22 07/18/2024 complete PFT w/ post bronchodilator spirometry* completed BARCODE [facility] ([facility]) [address] [place], [address], 07/25/2024 11:08:02 Procedure Notes None recorded. Medical Equipment None Reported. Allergies No known drug allergies Medications Name Sig Start Date Stop Date Status Note LastModified by Organization Details LastModified Time amoxicilli n 500 mg capsule 02/25 completed Not Available Not Available Not Available prednisone 10 mg tablet Take 1 tablet twice a day by oral route after meals for 5 days. 03/15 completed Not Available Not Available Not Available Vitamin C 500 mg tablet Take 1 tablet every day by oral route. 2014 active Not Available Not Available Not Avai lable cetirizine 10 mg tablet TAKE 1 TABLET BY MOUTH EVERY DAY NEEDED 07/18 completed Not Available Not Available Not Available azithromyc in 250 mg tablet TK 2 TS PO ON DAY 1, THEN TK 1 T PO D FOR 4 DAYS 04/03 completed Not Available Not Available Not Available aspirin 325 mg tablet Take 1 tablet every day by oral route for 90 days. 08/23 completed 81 mg Not Available Not Available Not Available pravastati n 40 mg tablet Take 1 tablet every day by oral route at bedtime for 90 days. 02/25 completed Not Available Not Available Not Available benzonatat e 200 mg capsule TAKE 1 CAPSULE BY MOUTH EVERY 8 HOURS FOR 10 DAYS NEEDED 05/14 completed Not Available Not Available Not Available valacyclov ir 1 gram tablet Take 2 tablets every 12 hours by oral route as directed for 1 day. active As needed only. Not Available Not Available Not Available Lotrisone 1 %-0.05 % topical cream Apply 1 applicat ion every day by topical route for 14 days. 02/05 completed Not Available Not Available Not Available nitroglyce rin 0.2 mg/hr transderma l 24 hour patch active Not Available Not Available Not Available Keflex 500 mg capsule Take 1 capsule every 8 hours by oral route for 7 days. 09/27 completed Not Available Not Available Not Available prednisone 20 mg tablet 04/03 completed Not Available Not Available Not Available isosorbide mononitrat e ER 30 mg tablet,ext ended release 24 hr 05/29 completed Not Available Not Available Not Available Debrox 6.5 % ear drops INSTILL 3 DROPS INTO AFFECTED EAR(S) BY OTIC ROUTE 2 TIMES PER DAY 07/18 completed Not Available Not Available Not Available permethrin 5 % topical cream active Not Available Not Available Not Available Toprol XL 50 mg tablet,ext ended release Take 0.5 tablet(s ) every day 10/03 completed Not Available Not Available Not Available acetaminop hen 300 mg-codeine 30 mg tablet 11/27 completed Not Available Not Available Not Available clopidogre l 75 mg tablet TAKE 1 TABLET BY MOUTH DAILY GENERIC EQUIVALE NT FOR PLAVIX active Not Available Not Available No t Available valacyclov ir 500 mg tablet Take 1 tablet twice a day by oral route as directed for 5 days. 07/18 completed Not Available Not Available Not Available aspirin 81 mg tablet,del ayed release Take 1 tablet every day by oral route after meals for 90 days. active Not Available Not Available No t Available amoxicilli n 500 mg tablet Take 1 tablet every 8 hours by oral route for 14 days. 10/03 completed Not Available Not Available Not Available pravastati n 80 mg tablet TAKE 1 TABLET BY MOUTH DAILY active Not Available Not Available No t Available ciprofloxa jessica 0.3 % eye drops 03/28 completed Not Available Not Available Not Available benzonatat e 100 mg capsule Take 1 capsule twice a day by oral route as needed. 03/15 completed Not Available Not Available Not Available desloratad ine 5 mg tablet Take 1 tablet every day by oral route for 90 days. 2012 active Not Available Not Available Not Avai lable ranitidine 150 mg tablet TAKE 1 TABLET TWICE A DAY DIRECTED active Not Available Not Available No t Available nitroglyce rin 0.4 mg sublingual tablet active Not Available Not Available Not Available mometasone 50 mcg/actuat ion nasal spray Use 1 spry into each nostril once a day as needed. active Not Available Not Available No t Available omeprazole 20 mg capsule,de layed release TAKE 1 CAPSULE DAILY 02/25 completed Not Available Not Available Not Available montelukas t 10 mg tablet Take 1 tablet every day by oral route in the evening for 30 days. active Not Available Not Available No t Available pravastati n 20 mg tablet Take 1 tablet every day by oral route at bedtime for 90 days. 09/27 completed Not Available Not Available Not Available mupirocin 2 % topical ointment APPLY A SMALL AMOUNT TO THE AFFECTED AREA BY TOPICAL ROUTE 3 TIMES PER DAY 09/27 completed Not Available Not Available Not Available metoprolol succinate ER 25 mg tablet,ext ended release 24 hr TAKE 1 TABLET BY MOUTH DAILY active Not Available Not Available No t Available levofloxac in 750 mg tablet TAKE 1 TABLET BY MOUTH EVERY DAY FOR 7 DAYS DIRECTED 04/03 completed Not Available Not Available Not Available methylpred nisolone 4 mg tablets in a dose pack FOLLOW PACKAGE DIRECTIO NS 05/14 completed Not Available Not Available Not Available albuterol sulfate HFA 90 mcg/actuat ion aerosol inhaler Inhale 2 puffs every 4-6 hours by inhalati on route as needed. 07/18 completed Not Available Not Available Not Available loratadine 10 mg tablet TAKE 1 TABLET DAILY IN THE MORNING active Not Available Not Available No t Available amoxicilli n 875 mg-potassi um clavulanat e 125 mg tablet TAKE 1 TABLET BY MOUTH EVERY 12 HOURS FOR 10 DAYS DIRECTED 05/14 completed Not Available Not Available Not Available esomeprazo le magnesium 20 mg capsule,de layed release TAKE ONE CAPSULE BY MOUTH DAILY BEFORE A MEAL 2023 active Not Available Not Available Not Avai lable amoxicilli n-potassiu m clavulanat e 1,000 mg-62.5 mg tablet,ext .rel 12hr active Not Available Not Available No t Available ezetimibe 10 mg tablet TAKE 1 TABLET BY MOUTH DAILY active Not Available Not Available No t Available magnesium 500MG DAILY 02/25 completed Not Available Not Available Not Available Fish Oil 600MG DAILY 05/14 completed Not Available Not Available Not Available multivitam in 1 PO QD 05/14 completed Not Available Not Available Not Available hydrocodon e 7.5 mg-acetami nophen 300 mg tablet 11/27 completed Not Available Not Available Not Available calcium 600 mg (as carbonate) -vitamin D3 10 mcg (400 unit) tablet Take 1 tablet twice a day by oral route for 90 days. 03/11 completed Not Available Not Available Not Available Vitamin D3 125 mcg (5,000 unit) tablet Take 2 tablets every day by oral route. 2014 active Not Available Not Available Not [place] [employer] [employer] 1.5 billion cell capsule Take 1 capsule every day by oral route in the morning for 30 days. 04/26 completed Not Available Not Available Not Available Jublia 10 % topical solution with applicator 12/16 completed Not Available Not Available Not Available Flonase Allergy Relief 50 mcg/actuat ion nasal spray,susp ension [place] 1 spray every day by intranas al route as needed for 90 days. 2023 active Not Available Not Available Not [place] [employer] Vitals Date Recorded Body height Body mass index (BMI) Body weight Body temperature Heart rate Oxygen saturation Oxygen saturation in Arterial blood by Pulse oximetry Systolic blood pressure Diastolic blood pressure Provider Name and Address Organization Details Last Updated DateTime 4 167.64 cm 31.2 kg/m2 31044.4 3 g 98.4 [degF] 71 /min 97 % 97 % 119 mm[Hg] 69 mm[Hg] Carol Sepulveda MA [facility] [employer] 4 15:56:15 Date Recorded Body height Body mass index (BMI) Body weight Heart rate Oxygen saturation Oxygen saturation in Arterial blood by Pulse oximetry Body temperature Systolic blood pressure Diastolic blood pressure Provider Name and Address Organization Details Last Updated DateTime 4 167.64 cm 30.7 kg/m2 40127.5 5 g 59 /min 98 % 98 % 97.4 [degF] 138 mm[Hg] 72 mm[Hg] Ren Nunes CMA [facility] [employer] [facility] 4 11:33:12 Date Recorded Heart rate Respiratory rate Provider N mario and Address Organization Details Last Updated DateTime 05/29/2024 59 /min 15 /min Esteban Nelson MD [address], [place], [address], [facility] [employer] [facility] 05/29/2024 12:14:42 Date Recorded Body height Body mass index (BMI) Body weight Body temperature Heart rate Respiratory rate Oxygen saturation Oxygen saturation in Arterial blood by Pulse oximetry Systolic blood pressure Diastolic blood pressure Provider Name and Address Organization Details Last Updated DateTime 4 167.64 cm 28.7 kg/m2 77299.7 9 g 98.1 [degF] 52 /min 16 /min 98 % 98 % 134 mm[Hg] 78 mm[Hg] Wellington Kelly [facility] [employer] [facility] 4 10:19:44 Date Recorded Body height Body mass index (BMI) Body weight Body temperature Heart rate Respiratory rate Oxygen saturation Oxygen saturation in Arterial blood by Pulse oximetry Systolic blood pressure Diastolic blood pressure Provider Name and Address Organization Details Last Updated DateTime 4 167.64 cm 28.9 kg/m2 51299.3 8 g 97.7 [degF] 64 /min 20 /min 99 % 99 % 132 mm[Hg] 74 mm[Hg] Wellington Kelly [facility] [employer] [facility] 4 09:23:51 Date Recorded Body height Body mass index (BMI) Body weight Body temperature Respiratory rate Oxygen saturation Oxygen saturation in Arterial blood by Pulse oximetry Systolic blood pressure Diastolic blood pressure Provider Name and Address Organization Details Last Updated DateTime 4 167.64 cm 30.5 kg/m2 21905.9 6 g 97.4 [degF] 16 /min 98 % 98 % 130 mm[Hg] 78 mm[Hg] Ophelia Grayson MA [facility] [employer] [facility] 4 15:13:08 Date Recorded Heart rate Heart rate Provider Name and Address Organization Details Last Updated DateTime 07/18/2024 61 /min 61 /min Esteban Nelson MD [address], [place], [address], [place] [facility] [employer] 07/18/2024 15:39:39 Social History Question Answer Notes LastModified by Organizat ion Details LastModified Time Tobacco Smoking Status Never Smoker TANNER Muro [place] [facility] [employer] 05/29/2024 11:38:39 Do You Have An Advance Directive? Yes [id number] Information not available 12/23/2022 What Is Your Level Of Alcohol Consumption? Moderate [id number].[id number] Information not available 12/23/2022 Do You Wear A Helmet When Biking? No [id number] Information not available 12/23/2022 Are You Blind Or Do You Have Difficulty Seeing? No MIGRATION.[id number] Information not available 12/23/2022 What Is Your Level Of Caffeine Consumption? Moderate [id number].[id number] Information not available 12/23/2022 How Much Tobacco Do You Chew? None [id number] Information not available 12/23/2022 In The 14 Days Before Symptom Onset, Have You Had Close Contact With A Laboratory-confi rmed COVID-19 While That Case Was Ill? No [id number] Information not available 12/23/2022 In The 14 Days Before Symptom Onset, Have You Had Close Contact With A Person Who Is Under Investigation For COVID-19 While That Person Was Ill? No [id number] Information not available 12/23/2022 Are You Deaf Or Do You Have Serious Difficulty Hearing? Yes MIGRATION.80810 [id number] Information not available 12/23/2022 What Type Of Diet Are You Following? REGULAR [id number].[id number] Information not available 12/23/2022 Which Illicit Or Recreational Drugs Have You Used? None MIGRATION.[id number] Information not available 12/23/2022 Do You Or Have You Ever Used E-cigarettes Or Vape? Never Used Electronic Cigarettes MIGRATION.[id number] Information not available 12/23/2022 What Is Your Occupation? Retired MIGRATION.67941 [id number] Information not available 12/23/2022 Have There Been Any Changes To Your Family Or Social Situation? No MIGRATION.91948 [id number] Information not available 12/23/2022 What Is The Fluoride Status Of Your Home? Unknown MIGRATION.92037 [id number] Information not available 12/23/2022 Are There Any Guns Present In Your Home? No MIGRATION.91493 [id number] Information not available 12/23/2022 Do You Use Insect Repellent Routinely? No MIGRATION.69885 [id number] Information not available 12/23/2022 Where Do You Live? [facility] MIGRATION.76619 [id number] Information not available 12/23/2022 Do You Have A Medical Power Of Road Crossing Guard? Yes MIGRATION.98049 [id number] Information not available 12/23/2022 Do You Have Any Pets? Yes MIGRATION.48731 [id number] Information not available 12/23/2022 What Is Your Relationship Status? MIGRATION.86881 [id number] Information not available 12/23/2022 Do You Use Your Seat Belt Or Car Seat Routinely? Yes MIGRATION.43389 [id number] Information not available 12/23/2022 Do You Have Smoke And Carbon Monoxide Detectors In Your Home? Yes [id number] Information not available 12/23/2022 Are You Passively Exposed To Smoke? No MIGRATION.91155 [id number] Information not available 12/23/2022 Do You Or Have You Ever Used Smokeless Tobacco? Never Used Smokeless Tobacco MIGRATION.25785 23292 Information not available 12/23/2022 Are There Any Smokers In Your House? No MIGRATION.28834 [id number] Information not available 12/23/2022 How Much Tobacco Do You Smoke? No MIGRATION.09761 82311 Information not available 12/23/2022 Do You Participate In Social Media? No MIGRATION.90947 49570 Information not available 12/23/2022 Do You Feel Stressed (tense, Restless, Nervous, Or Anxious, Or Unable To Sleep At Night)? [id number] Information not available 05/29/2024 Do You Use Sunscreen Routinely? Yes MIGRATION.36719 07207 Information not available 12/23/2022 Have You Recently Traveled Abroad? No MIGRATION.24607 25915 Information not available 12/23/2022 Are You Currently In School? No MIGRATION.42033 21256 Information not available 12/23/2022 Do You Have Any Dietary Restrictions? No MIGRATION.53879 55633 Information not available 12/23/2022 Sex: Male Functional Status Question Answer Note LastModified by Organizat ion Details LastModified Time Do you have difficulty walking or climbing stairs? No [id number].[id number] 026 Information not available 12/23/2022 Do you have transportation difficulties? No MIGRATION.[id number] 026 Information not available 12/23/2022 Are you able to walk? YESWOREST MIGRATION.[id number] 026 Information not available 12/23/2022 Do you have difficulty doing errands alone? No MIGRATION.[id number] 026 Information not available 12/23/2022 Are you able to care for yourself? Yes MIGRATION.[id number] 026 Information not available 12/23/2022 Do you have difficulty dressing or bathing? No MIGRATION.[id number] 026 Information not available 12/23/2022 What is your exercise level? Moderate [id number].[id number] 026 Information not available 12/23/2022 Mental Status Question Answer Note LastModified by Organizat ion Details LastModified Time Do you have difficulty concentrating, remembering or making decisions? No [id number].[id number] 6 Information not available 12/23/2022 Family History Relationship Description Onset Age of this Age Resolved Age Notes LastModified by Organization Details LastModified Time Father Malignant neoplastic disease MIGRATION.490 [id number] Not available 12/23/2022 07:27:27 Mother Malignant neoplasm of uterus MIGRATION.848 [id number] Not available 12/23/2022 07:27:27 Brother Liver problem [id number].[id number] Not available 12/23/2022 07:27:27 Medical History No medical history recorded. Immunizations Vaccine Type Date Status Note Provider Nam e and Address Organization Details Recorded Time Influenza, high-dose, quadrivalent, PF 3 completed HAMILTON Powers, [employer] [facility] [employer] 07/23/2023 11:14:51 RSV, recombinant, protein subunit RSVpreF, adjuvant reconstituted, 0.5 mL, PF 4 completed Roxy rangel [employer] [facility] [employer] 12/27/2023 08:17:06 COVID-19, mRNA, LNP-S, PF, deep-sucrose, 30 mcg/0.3 mL 4 completed Roxy rangel [facility] [employer] [facility] 07/25/2024 16:13:27 COVID-19, mRNA, LNP-S, PF, 100 mcg/0.5mL dose or 50 mcg/0.25mL dose 1 completed Not Available [employer] 12/23/2022 07:40:41 Influenza, high-dose, quadrivalent, PF 9 completed Not Available [facility] 12/23/2022 07:40:41 Influenza, high-dose, trivalent, PF 6 completed Not Available [facility] 12/23/2022 07:40:41 Influenza, split virus, trivalent, preservative 5 completed Not Available [facility] 12/23/2022 07:40:41 zoster live 5 completed Not Available [facility] 12/23/2022 07:40:41 Pneumococcal conjugate PCV 13 5 completed Not Available [facility] 12/23/2022 07:40:41 Influenza, split virus, trivalent, preservative 4 completed Not Available [facility] 12/23/2022 07:40:42 Influenza, high-dose, trivalent, PF 8 completed Not Available [facility] 12/23/2022 07:40:42 Influenza, high-dose, trivalent, PF 7 completed Not Available [facility] 12/23/2022 07:40:42 pneumococcal polysaccharide PPV23 7 completed Not Available [facility] 12/23/2022 07:40:42 Tdap 5 completed Not Available [facility] 12/23/2022 07:40:42 Pneumococcal conjugate PCV 13 5 completed Not Available [facility] 12/23/2022 07:40:42 Past Encounters Encounter ID Performer Location Encounter Start Date Encounter Closed Date Diagnosis/Indication Diagnosis SNOMED-CT Code Diagnosis ICD10 Code Diagnosis Note [id number] [facility] Roger [address] [place] [id number] 1 02/25/2021 00:00:00 02/25/2021 09:59:18 [id number] [facility] [address] [address] 1 02/26/2021 00:00:00 02/26/2021 11:03:[id number] [address]153 1 03/11/2021 00:00:00 03/11/2021 09:55:[id number] [address]289 1 02/23/2022 00:00:00 02/23/2022 09:24:[id number] [address]102 1 03/12/2022 00:00:00 03/12/2022 14:40:[id number] [address]192 1 04/08/2022 00:00:00 04/08/2022 16:43:59 [id number] Matty Lentz MD [address] [id number] 1 03/15/2023 08:44:10 03/15/2023 09:21:32 Hypertensive disorder 25939786 I10 Gastroesop hageal reflux disease 714278260 K21.9 Obesity 081738119 E66.9 Hyperlipidemia 50953740 E78.5 Screening for malignant neoplasm of prostate 814467704 Z12.5 Vitamin D deficiency 347 32420 E55.9 Bilateral hearing loss 64450360 H91.93 Coronary arteriosclerosis 48273900 I25.10 Ex-smoker 6425174 Z87.89 1 [id number] Matty Lentz MD [address] [address] 1 10/22/2023 09:02:16 10/22/2023 09:42:28 Seen in emergency clinic [id number] Z76.89 UC Pneumonia 455077026 J18. 9 Cough 15790145 R05.9 Nasal congestion 6373369 0 R09.81 Fatigue 27083165 R53.83 Hypertensive disorder 38 257231 I10 Hyperlipidemia 61803647 E78.5 [id number] Matty Lentz MD [address] [address] 1 04/03/2024 15:49:59 04/03/2024 16:10:56 Cough 90388514 R05.9 Bronchitis 62729546 J40 Nasal congestion 5048537 0 R09.81 [id number] Esteban Nelson MD [facility] [place] [address] [place] [address] 0 05/29/2024 11:24:31 05/29/2024 15:30:24 Chronic cough 67250047 R05.3 R06.00 T78.40XA D89.9 Atelectasis 25667197 J98 .11 [id number] Matty Lentz MD [address] [address] 1 06/14/2024 10:13:42 06/14/2024 10:45:40 Hypertensive disorder 26399021 I10 Gastroesop hageal reflux disease 448818299 K21.9 Obesity 009236460 E66.9 Hyperlipidemia 06548398 E78.5 Screening for malignant neoplasm of prostate 150974443 Z12.5 Vitamin D deficiency 347 85484 E55.9 Bilateral hearing loss 36815566 H91.93 Coronary arteriosclerosis 30941035 I25.10 Ex-smoker 5014851 Z87.89 1 Gastroesop hageal reflux disease without esophagitis 059515018 K21.9 Upper resp iratory infection 45361697 J06.9 Impacted c erumen of bilateral ears 7878023167 823318 H61.23 [id number] Matty Lentz MD [address] [address] 1 07/04/2024 09:15:14 07/04/2024 09:43:28 Hypertensive disorder 54693737 I10 Gastroesop hageal reflux disease 090312314 K21.9 Hyperlipidemia 80486637 E78.5 Vitamin D deficiency 347 33387 E55.9 Improved Bilateral hearing loss 26831297 H91.93 Coronary arteriosclerosis 84276318 I25.10 Ex-smoker 9979339 Z87.89 1 Gastroesop hageal reflux disease without esophagitis 560224606 K21.9 Impacted c erumen of bilateral ears 6187467416 859943 H61.23 Overweight 851856986 E66 .3 [id number] Esteban Nelson MD [facility] [place] [address] [facility] [address] [place] [address] 07/18/2024 14:58:42 07/19/2024 15:31:15 Chronic cough 75753267 R05.3 R06.00 T78.40XA D89.9 Atelectasis 89128452 J98 .11 Health Concerns Section Related Observation LastModified by Organization Detai ls LastModified Time None Recorded Concern Status LastModified by Organization Details LastModified Time None Recorded Advance Directives Directive Y: Payers Encounter Date Sequence Insurance Name Policy Number Policy Avila Covered Member ID Avila Member ID Guarantor Name 04/03/2024 1 [place] Felix V Tuckerman [id number] Felix V Sandeep 04/03/2024 1 [employer] (MEDICARE REPLACEMENT PPO) [id number] Felix V Tuckerman [id number] Felix V Tuckerman 05/29/2024 1 [employer] (MEDICARE REPLACEMENT PPO) [id number] Felix V Tuckerman [id number] Felix V Tuckerman 06/14/2024 1 [employer] (MEDICARE REPLACEMENT PPO) [id number] Felix V Sandeep [id number] Felix V Tuckerman 07/04/2024 1 [employer] (MEDICARE REPLACEMENT PPO) [id number] Felix V Tuckerman [id number] Felix V Sandeep 07/18/2024 1 [employer] (MEDICARE REPLACEMENT PPO) [id number] Felix V Tuckerman [id number] Eflix V Sandeep Notes Date Note Type Note Provider Name and Address Organization Details Recorded Time 04/03/2024 text/html ACV: C/o cough with yellowish sputum and congestion for last 10 days that is not getting better. Denies any other concern. Pt was seen at for this last week and had cxr done and it was good. So pt was given Prednisone and he has finished it, but still not better. Matty Lentz MD [address] [facility] [address], [place], [address], [facility] [employer] 04/03/2024 16:08:25 05/29/2024 text/html Primary care/Referring provider: Matty Lentz MD Patient is here to go over cough evaluation and management. Initial development of cough: 03/2024 Duration of cough: 2months Nature of cough: productive of green -> white sputum Condition of cough: improving Timing of cough: none Frequency: once an hour -> once a day Limits activities: yes Aggravating factors: walking briskly Alleviating factors: resting Treatment history: Albuterol HFA as needed 2022 only Other symptoms: Drooling: no Dysarthria: no Neck pain: no Odynophagia: no Dysphagia: no Weak mastication: no Facial weakness: no Nasal speech: no Protruding tongue: no Wheezing: no Chest tightness: yes Orthopnea: no Frequent throat clearing or swallowing: no Palpitations: no Heartburn: no Edema: no Modified [employer] [place] (mMRC) Dyspnea Scale - Grade 1 Grade 0 I only get breathless with strenuous exercise . Grade 1 I get short of breath when hurrying on the level or walking up a slight hill . Grade 2 I walk slower than people of the same age on the level because of breathlessness or have to stop for breath when walking at my own pace on the level . Grade 3 I stop for breath after walking about 100 yards or after a few minutes on the level . Grade 4 I am too breathless to leave the house or I am breathless when dressing . Environmental exposures: Nicotine smoke: no [place]: no Dye: no Dust mites: yes Mold: no Damp basement: no Wood burning stove: no Animal dander: dog, cockatiel [id number] Cockroaches: no Pollen: yes Arsenic: no Asbestos: no Beryllium: no Cadmium: no Chromium: no Brooks smoke: no Diesel fumes: no Nickel: no Silica: no Soot: no EPWORTH SLEEPINESS SCALE (ESS) CHANCE OF DOZING SCORE 0 = would never doze 1 = slight chance of dozing 2 = moderate chance of dozing 3 = high chance of dozing SITUATION AND CHANCE OF DOZING Sitting and reading - 0 Watching television - 0 Sitting inactive in a public place (e.g. a theater or meeting) - 0 As a passenger in a car for an hour without a break - 0 Lying down to rest in the afternoon when circumstances permit - 0 Sitting and talking to someone - 0 Sitting quietly after lunch without alcohol - 0 In a car, while stopped for a few minutes in the traffic - 0 TOTAL SCORE 0 Subjectively, patient has a no chance of dozing. Esteban Nelson MD [address] [address], [place], [address], [employer] [facility] [employer] 05/29/2024 12:19:32 06/14/2024 text/html Pt is here for h is annual exam. Doing overall well and denies any concerns. Denies any problems with meds.Pt is not checking his BP at home.Pt is f/u with his Media Planner and had angiogram done with him and it was same as before, no stents needed. No changes in any of his meds.Doing well with his GERD and no concerns with it. Denies any blood in stool. Matty Lentz MD [address] [facility] [address], [place], [address], [employer] 06/14/2024 10:40:23 07/04/2024 text/html Pt is here for f /u on his annual labs and b/l ear flushing. Doing overall well and denies any concerns. Denies any problems with meds.Pt is not checking his BP at home.Pt is f/u with his Media Planner and had angiogram done with him and it was same as before, no stents needed. No changes in any of his meds.Doing well with his GERD and no concerns with it. Denies any blood in stool. Matty Lentz MD [address] [address], [place], [address], [employer] [facility] [employer] 07/04/2024 09:41:41 07/18/2024 text/html Primary care/Referring provider: Matty Lentz MD Patient is here to go over his PFT, Sniff test and lab work as part of his cough evaluation and management. Initial development of cough: uration of cough: 3 monthsNature of cough: productive of white sputumCondition of cough: improvingTiming of cough: noneFrequency: less than once a weekLimits activities: yesAggravating factors: walking brisklyAlleviating factors: resting Treatment history: Albuterol HFA as needed 2022 only Other symptoms:Drooling: noDysarthria: noNeck pain: noOdynophagia: noDysphagia: noWeak mastication: noFacial weakness: noNasal speech: noProtruding tongue: noWheezing: noChest tightness: yesOrthopnea: noFrequent throat clearing or swallowing: noPalpitations: noHeartburn: noEdema: no Modified [employer] [place] (mMRC) Dyspnea Scale - Grade 1Grade 0 I only get breathless with strenuous exercise .Grade 1 I get short of breath when hurrying on the level or walking up a slight hill .Grade 2 I walk slower than people of the same age on the level because of breathlessness or have to stop for breath when walking at my own pace on the level .Grade 3 I stop for breath after walking about 100 yards or after a few minutes on the level .Grade 4 I am too breathless to leave the house or I am breathless when dressing . Environmental exposures:Nicotine smoke: noPaint: noDye: noDust mites: yesMold: noDamp basement: noWood burning stove: noAnimal dander: dog, cockatiel [id number]: noPollen: yesArsenic: noAsbestos: noBeryllium: noCadmium: noChromium: noCoal smoke: noDiesel fumes: noNickel: noSilica: noSoot: no EPWORTH SLEEPINESS SCALE (ESS) CHANCE OF DOZING SCORE0 = would never doze1 = slight chance of dozing2 = moderate chance of dozing3 = high chance of dozing SITUATION AND CHANCE OF DOZINGSitting and reading - 0Watching television - 0Sitting inactive in a public place (e.g. a theater or meeting) - 0As a passenger in a car for an hour without a break - 0Lying down to rest in the afternoon when circumstances permit - 0Sitting and talking to someone - 0Sitting quietly after lunch without alcohol - 0In a car, while stopped for a few minutes in the traffic - 0TOTAL SCORE 0Subjectively, patient has a no chance of dozing. Esteban Nelson MD [address] [place] [address], [address], [place] [facility] 07/18/2024 15:39:47
--- OUTSIDE RECORDS SUMMARY | 2024-12-06 14:05 | XMS_ITS | Referral Summary ---
Author Organization [facility] [address] Address [address] [place] [address] Care Team Providers Care Mba Intern Name Role Phone Matty Lentz MD Primary Care Provider [phone] Allergies No known active allergies Medications multivitamin tablet tablet Take one by mouth one time per day 0 0 0 Active cholecalciferol (VITAMIN D3) 1,000 unit capsule take 1 by Oral route every day 0 2 Active calcium carbonate (CALCIUM 600) 1,500 mg (600 mg of elemental calcium) tablet take 1 by Oral route 2 times every day 0 0 5 Active fluticasone (FLONASE) 50 mcg/actuation nasal spray spray 1 spray by intranasal route every day in each nostril 0 spray 0 5 Active nitroglycerin (NITROSTAT) 0.[address] 1 tablet (0.4 mg total) under the tongue every 5 (five) minutes as needed for chest pain Max 3 doses. 60 tablet 3 9 Active Additional Information Patient not taking.Reported on 01/18/[address] (NexIUM) 20 mg capsule Take 1 capsule (20 mg total) by mouth daily before breakfast Active aspirin (Adult Low Dose Aspirin) 81 mg enteric coated tablet Take 1 tablet (81 mg total) by mouth daily 90 tablet 3 4 Active clopidogreL (PLAVIX) 75 mg tablet Take 1 tablet (75 mg total) by mouth daily 90 tablet 3 4 Active ezetimibe (ZETIA) 10 mg tablet TAKE 1 TABLET BY MOUTH DAILY DAILY 90 tablet 3 4 Active metoprolol XL (TOPROL-XL) 25 mg extended release tablet Take 1 tablet (25 mg total) by mouth daily 90 tablet 3 4 Active pravastatin (PRAVACHOL) 80 mg tablet Take 1 tablet (80 mg total) by mouth daily 90 tablet 3 4 Active Active Problems Problem Noted Date Diagnosed Date Mixed hyperlipidemia 12/25/2021 Groin pain, right 09/29/2019 H/O acute myocardial infarction 09/29/2019 Hematoma of circulatory syst em after cardiac catheterization 09/29/2019 GUILLEN (dyspnea on exertion) 09/14/2018 HTN (hypertension), benign 09/14/2018 Chest pain 02/17/2016 Overview (01/28/2017): Chest pain of uncertain etiology Gastroesophageal reflux disease without esophagi tis 02/17/2016 Overview (01/28/2017): GERD without esophagitis Coronary artery disease of n ative artery of [place] heart with stable angina pectoris ([facility]) 08/05/2015 Overview (01/28/2017): Coronary artery disease involving ass[place]ibo[place] and sioux coronary artery of ass[place] and si[place] heart with angina pectoris Resolved Problems Problem Noted Date Diagnosed Date Resolved Date Dyslipidemia 09/14/2018 12/25/2021 Social History Tobacco Use Types Packs/Day Years Used Date Smoking Tobacco: Never Smokeless Tobacco: Former Tobacco Cessation:Counseling Given: Not Answered Alcohol Use Standard Drinks/Week Comments Yes 0 (1 standard drink = 0.6 oz pur e alcohol) Sex and Gender Information Value Date Recorded Sex Assigned at Not on file 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 Gender Identity Not on file Sexual Orientation Not on file Last Filed Vital Signs Vital Sign Reading Time Taken Comments Blood Pressure 104/62 07/13/2023 8:07 AM CDT Pulse 67 07/13/2023 8:07 AM CDT Temperature - - Respiratory Rate - - Oxygen Saturation 98% 07/13/2023 8:07 AM CDT Inhaled Oxygen Concentration - - Weight 85.5 kg (188 lb 8 oz) 07/13/2023 8:07 AM CDT Height 170.2 cm (5' 7 ) 07/13/2023 8:07 AM CDT Body Mass Index 29.52 07/13/2023 8:07 AM CDT Plan of Treatment Not on file Insurance [facility] MEDICARE [facility] MEDICARE Care Teams Mba Intern Relationship Specialty Start Date End Date Matty Lentz MD [address] [facility] [place] [address] PCP - General Drugless Physician 09/14/18
--- OUTSIDE RECORDS SUMMARY | 2024-12-06 14:05 | XMS_ITS | Clinical Summary ---
Author Organization [facility] [address] Address [address] [place] [address] Care Team Providers Care Information Consultant Name Role Phone Matty Lentz MD Primary Care Provider [phone] Allergies No known active allergies Medications multivitamin [...] artery disease of n ative artery of [place] heart with stable angina pectoris ([facility]) 08/05/2015 Overview (01/28/2017): Coronary artery disease involving [place] coronary artery of [place] heart with angina pectoris Resolved Problems Problem Noted Date Diagnosed Date Resolved Date Dyslipidemia 09/14/2018 12/25/2021 Surgical History Surgery Date Site/Laterality Comments OTHER SURGICAL HISTORY 2009 L. Hip pinning Medical History Medical History Date Comments Gastroesophageal reflux disease GERD Hx Other Medical Diverticulosis Hx Other Medical BPH Asthma Asthma Bronchitis Bronchitis Hx Other Medical Coronary Artery Disease chr LAD occlusion Hypertension Hypertension Family History Medical History Relation Name Comments No Known Problems Father No Known Problems Mother Relation Name Status Comments Father Mother Social History Tobacco Use Types Packs/Day Years Used Date Smoking Tobacco: Never Smokeless Tobacco: Former Tobacco Cessation:Counseling Given: Not Answered Alcohol Use Standard Drinks/Week Comments Yes 0 (1 standard drink = 0.6 oz pur e alcohol) Sex and Gender Information Value Date Recorded Sex Assigned at Not on file 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 Gender Identity Not on file Sexual Orientation Not on file Obstetrics History Last Filed Vital Signs Vital Sign Reading [...] 07/13/2023 8:07 AM CDT Plan of Treatment Health Maintenance Due Date Last Done Comments Colon Cancer Screening-Colonoscopy 1950 Depression Screening 1950 Fall Risk Assessment 1950 Hepatitis C Screening 1950 Hepatitis B Screening 1968 Zoster Vaccine (2 of 3) 01/22/2015 11/27/2014 Well Visit 65+ 2015 Influenza Vaccine (#1) 2024 8, 08/06/2017, 07/25/2016, Additional history exists DTaP/Tdap/Td Vaccine (2 - Td or Tdap) 06/04/2025 06/04/2015 Pneumococcal vaccine 65+ Completed 017, 06/04/2015, 11/27/2014 Insurance AET MEDICARE [facility] MEDICARE Care Teams Information Consultant Relationship Specialty Start Date End Date Matty Lentz MD [address] [place] [address] PCP - General Palletizer 09/14/18
--- OUTSIDE RECORDS SUMMARY | 2024-12-06 14:05 | XMS_ITS | Clinical Summary ---
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 Gender Identity Not on file Sexual Orientation Not on file Plan of Treatment Health Maintenance Due Date Last Done Comments Hepatitis C Virus (HCV) Screening 1950 Colonoscopy 1995 Colorectal Cancer Screening 1995 Cologuard 2000 Immunochemical Fecal Occult Blood 2000 Zoster Immunization (2 of 3) 01/22/2015 11/27/2014 Influenza Immunization (#1) 06/25/202411/2019, 08/02/2018, 08/06/2017, Additional history exists SARS-COV-2 Immunization (2023- season) 2024 Respiratory Syncytial Virus (RSV) Immunization (Adult) (1 - 1-dose 75+ series) 2025 DTaP/Tdap/Td Immunization Discontinued 06/04/2015 TdaP Immunization Completed 06/04/2015 Pneumococcal Immunization (50+ years) Completed 08/06/2017, 06/04/2015, 11/27/2014 Pneumococcal Immunization Combined Discontinued 08/06/2017, 06/04/2015, 11/27/2014 Hepatitis B Immunization Aged Out No longer eligible based on patient's age to complete this topic Meningococcal Immunization (ACWY) Aged Out No longer eligible based on patient's age to complete this topic Rotavirus Immunization Aged Out No lo nger eligible based on patient's age to complete this topic Insurance [employer] on file
--- OUTSIDE RECORDS SUMMARY | 2024-12-06 14:05 | XMS_ITS | Clinical Summary ---
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 Marine [employer] Operator Name Role Phone Unavailable Primary Care Provider Unavailabl e Social History Tobacco Use Types Packs/Day Years Used Date Smoking Tobacco: Never Assessed Sex and Gender Information Value Date Recorded Sex Assigned at Not on file Legal Sex Male 8:25 PM CDT Gender Identity Not on file Sexual Orientation Not on file Plan of Treatment Health Maintenance Due Date Last Done Comments Colorectal Cancer Screening Colonoscopy (10 Years) 1950 Hepatitis C 1968 DTaP, Tdap and Td Vaccines ( 1 - Tdap) 1969 Zoster Vaccines (1 of 2) 2000 Pneumococcal Vaccine: 65+ Ye ars (1 of 1 - PCV) 2015 COVID-19 Vaccine ( - 2023-2 5 season) 2024 Influenza Adult (#1) 2024 RSV Immunization or 60+ Years (1 - 1-dose 75+ series) 2025 Meningococcal B Vaccine Aged Out No l onger eligible based on patient's age to complete this topic Meningococcal Vaccine Aged Out No alberto shahrzad eligible based on patient's age to complete this topic RSV Immunizations Under 20 Months Aged Out No longer eligible based on patient's age to complete this topic
[2024-12-06 14:12] VITALS: BP 147/86; PULSE 61; RESP 18; TEMP 36.4; O2SAT 98
[2024-12-06 14:26] LABS: EDCOVIDSCREEN Negative (Negative); EDINFLUASCREEN Positive (Negative); EDINFLUBSCREEN Negative (Negative)
== END 2024-12-06 15:03 | disposition home or self-care (01) ==
PROVIDERS: Emergency Provider Nurse Practitioner; PCP Family Medicine
DX: J40 Bronchitis, not specified as acute or chronic (principal); J10.1 Influenza due to other identified influenza virus with other respiratory manifestations; Z20.822 Contact with and (suspected) exposure to COVID-19; Z79.82 Long term (current) use of aspirin
CPT/HCPCS: 71046; 87426; 87804; 99213; G0463

== ENCOUNTER 2025-01-18 08:33 | Emergency (ER) | payer MEDICARE, SELFPAY ==
--- NOTE | ~2025-01-18 | XR_ITS ---
XR shoulder RT min 2V 01/18/2025 09:01 Indication: Right shoulder pain after fall Procedure: 4 views right shoulder Comparison: No prior studies for comparison. Findings: There is mild polyarticular osteoarthritis. Small loose body inferior to the glenohumeral j oint. No fracture or traumatic malalignment. Impression: 1: No acute bone or joint abnormality. Reviewed, dictated and finalized at location A. Impression: 1: No acute bone or joint abnormality.
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
[2025-01-18 08:45] VITALS: BP 132/76; PULSE 62; RESP 18; TEMP 36.6; O2SAT 99
--- OUTSIDE RECORDS SUMMARY | 2025-01-18 08:48 | XMS_ITS | Clinical Summary ---
Author Organization [facility] Address [address] [place] [address] Care Team Providers Care S[employer] Operator Name Role Phone Unavailable Primary Care [...]
--- OUTSIDE RECORDS SUMMARY | 2025-01-18 08:48 | XMS_ITS | Data Portability ---
Author Organization [place] - [facility], Main Office Address [address] [place] [address] Care Team Providers Care Club Room Attendant Name Role Phone MATTY LENTZ Primary Care Provider [phone] Assessment Encounter Date Assessment Date Assessment LastModified [...] done as follows: Respiratory allergen panel for [facility] Serum IgE Serum total IgG, IgG1, IgG2, IgG3, IgG4 Whlne-0-cilficgqyeb phenotype and level TB stimulated gamma interferon [...] 02/26/21. Annual labs: 10/04/19. Annual labs at [place]: 10/13/18. EKG & CXR: 10/11/18. X-ray Rt [...] in ED. Cont f/u with Cardio at [place] as per schedule. Cont f/u with Derm at [place] as per schedule. Cont f/u with Ophtho at [place] as per schedule. Cont f/u with GI at [place] as per schedule. Cont f/u with ENT at [facility] as per schedule. Pt had orders for [...] on next visit. Annual labs in 03/17. [email or web address] Not available 06/14/2024 10:39:48 07/04/2024 07/04/2024 73 [...] 02/26/21. Annual labs: 10/04/19. Annual labs at [place]: 10/13/18. EKG & CXR: 10/11/18. X-ray Rt [...] per schedule. Cont f/u with Cardio at [place] as per schedule. Cont f/u with Derm at [place] as per schedule. Cont f/u with Ophtho at [place] as per schedule. Cont f/u with GI at [place] as per schedule. Cont f/u with ENT at [facility] as per schedule. Pt had orders for [...] to come sooner). Annual labs in 06/18. [email or web address] Not available 07/04/2024 09:40:50 07/18/2024 07/18/2024 Assessment: [...] but this was not sustained. 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 respiratory symptoms and use of inhaled -agonists [...] Not available Not available Not available Lab CBC w/ auto diff 2023 024 [facility] ([facility]), [address] [place], [address], 06/14/2024 14:02:01 CMP, serum or plasma 2023 024 [facility] (Lab), [address] [place], [address], 06/14/2024 17:00:37 urinalysi s complete, reflex culture [address] (Lab), [address] [place], [address], 06/21/2024 08:38:17 magnesium , serum or plasma 2023 024 [facility] (Lab), [address] [place], [address], 06/14/2024 17:00:41 lipid panel, serum 2023 024 [facility] (Lab), [address] [place], [address], 06/14/2024 17:00:44 TSH, serum or plasma 2023 024 [facility] (Lab), [address] [place], [address], 06/14/2024 17:48:19 PSA, serum or plasma [address] (Lab), [address] [place], [address], 06/21/2024 08:38:17 vitamin D, 25-hydrox y, total, serum [address] (Lab), [address] [place], [address], 06/21/2024 08:38:17 alpha-1-a ntitrypsi n (aat) phenotype , serum 2023 024 [facility] (Lab), [address] [place], [address], 06/03/2024 18:11:32 BNP (B-type natriuret ic peptide), serum or plasma 2023 024 [facility] (Lab), [address] [place], [address], 05/29/2024 15:53:24 ige, total, serum 2023 024 [email or web address] 2 [facility] (Lab), [address] [place], [address], 10/04/2024 14:08:12 tb (M tuberculo sis), ifn-gamma bernabe, blood 2023 024 [email or web address] 2 [facility] (Lab), [address] [place], [address], 10/04/2024 14:08:12 eosinophi l count, manual, blood (OBS) 2023 024 [email or web address] 2 [facility] (Lab), [address] [place], [address], 10/04/2024 14:08:[address] s 1+2+3+4, serum 2023 024 [email or web address] 2 [facility] (Lab), [address] [place], [address], 10/04/2024 14:08:13 respirato ry allergen panel, [facility] A, serum 2023 024 [email or web address] 2 [facility] (Lab), [address] [place], [address], 10/04/2024 14:08:13 respirato ry allergen panel - [facility] b 2023 024 [email or web address] 2 [facility] (Lab), [address] [place], [address], 10/04/2024 14:08:13 Referral None recorded. Procedures None recorded. Surgeries None recorded. Imaging RF, diaphragm - SNIFF TESTINGNo auth needed 2023 024 [facility] ([facility]), [address] [place], [address], 06/14/2024 11:04:30 Medication Orders prednison e 10 mg tablet [address] [facility], [address] [place] [address], [address], 12/13/2024 15:48:29 codeine 10 mg-guaife nesin 100 mg/5 mL oral liquid [address], [address] [place] [address], [address], 12/13/2024 15:48:27 amoxicill in 875 mg-potass ium clavulana te 125 mg tablet 2024 025 [facility], [address] [place] [address], [address], 12/13/2024 15:44:34 esomepraz ole magnesium 20 mg capsule,d elayed release [address] [facility], [facility], [place], [address], 07/04/2024 09:30:29 Debrox 6.5 % ear drops 2023 024 [email or web address] [facility], [address] [place] [address], [address], 07/18/2024 15:08:07 Flonase Allergy Relief 50 mcg/actua tion nasal spray,jen pension 2023 024 [facility], [facility], [place], [address], 06/14/2024 14:38:50 esomepraz ole magnesium 20 mg capsule,d elayed release 2023 024 BRENDA [facility], [place], [address], 06/14/2024 10:32:32 Patient TargetsNo targets recorded. Patient Instructions Encounter Date Encounter Id Patient Instructions Last Modified By Organization Details Last Modified Time 05/29/2024 [id number] complete PFT w/ post bronchodilator spirometry* - No auth needed [email or web address] Not available 07/03/2024 12:40:44 Reason for Referral None Reported. Results Created Date Observation Date Name Description Value Unit Range Abnormal Flag Note LastModifiedBy Organization Detail LastModifiedTime 06/14/20 24 06/14/2024 CBC/C OMPLE TE BLD COUNT W/DIF F white blood cells 5.7 x10'3 /uL 4.2-10 .8 Not Available [facility] (Lab) [address] [place], [address], 06/14/2024 14:02:01 06/14/20 24 06/14/2024 CBC/C OMPLE TE BLD COUNT W/DIF F red blood cells 4.25 x10'6 /uL 4.10-5 .80 Not Available [facility] (Lab) [address] [place], [address], 06/14/2024 14:02:01 06/14/20 24 06/14/2024 CBC/C OMPLE TE BLD COUNT W/DIF F hemoglobin 13.1 g/dL 13.2-1 7.0 low Not Available [facility] (Lab) [address] [place], [address], 06/14/2024 14:02:01 06/14/20 24 06/14/2024 CBC/C OMPLE TE BLD COUNT W/DIF F hematocrit 40.2 % 39.3-5 0.0 Not Available [facility] (Lab) [address] [place], [address], 06/14/2024 14:02:01 06/14/20 24 06/14/2024 CBC/C OMPLE TE BLD COUNT W/DIF F mean red cell volume 94.6 fL 80.0-9 7.0 Not Available [facility] (Lab) [address] [place], [address], 06/14/2024 14:02:01 06/14/20 24 06/14/2024 CBC/C OMPLE TE BLD COUNT W/DIF F mean red cell hemoglobin 30.8 pg 27.0-3 3.0 Not Available [facility] (Lab) [address] [place], [address], 06/14/2024 14:02:01 06/14/20 24 06/14/2024 CBC/C OMPLE TE BLD COUNT W/DIF F mean RBC HGB concentratio n 32.6 g/dL 31.0-3 6.0 Not Available [facility] (Lab) [address] [place], [address], 06/14/2024 14:02:01 06/14/20 24 06/14/2024 CBC/C OMPLE TE BLD COUNT W/DIF F red cell distribution width 13.3 % 11.8-1 5.5 Not Available [facility] (Lab) [address] [place], [address], 06/14/2024 14:02:01 06/14/20 24 06/14/2024 CBC/C OMPLE TE BLD COUNT W/DIF F platelets 196 x10'3 /uL 150-40 0 Not Available [facility] (Lab) [address] [place], [address], 06/14/2024 14:02:01 06/14/20 24 06/14/2024 CBC/C OMPLE TE BLD COUNT W/DIF F mean platelet volume 11.8 fL 9.0-12 .4 Not Available [facility] (Lab) [address] [place], [address], 06/14/2024 14:02:01 06/14/20 24 06/14/2024 CBC/C OMPLE TE BLD COUNT W/DIF F neutrophils 65.3 % 39.0-7 2.0 Not Available [facility] (Lab) [address] [place], [address], 06/14/2024 14:02:01 06/14/2006/14/2024 CBC/C OMPLE TE BLD COUNT W/DIF F lymphocytes 22.9 % 16.0-4 7.0 Not Available [facility] (Lab) [address] [place], [address], 06/14/2024 14:02:01 06/14/20 24 06/14/2024 CBC/C OMPLE TE BLD COUNT W/DIF F monocytes 8.4 % 5.0-12 .0 Not Available [facility] (Lab) [address] [place], [address], 06/14/2024 14:02:01 06/14/20 24 06/14/2024 CBC/C OMPLE TE BLD COUNT W/DIF F eosinophils 2.5 % 1.0-7. 0 Not Available [facility] (Lab) [address] [place], [address], 06/14/2024 14:02:01 06/14/20 24 06/14/2024 CBC/C OMPLE TE BLD COUNT W/DIF F basophils 0.7 % 0.0-2. 0 Not Available [facility] (Lab) [address] [place], [address], 06/14/2024 14:02:01 06/14/20 24 06/14/2024 CBC/C OMPLE TE BLD COUNT W/DIF F immature granulocytes 0.2 % 0.00-0 .50 Not Available [facility] (Lab) [address] [place], [address], 06/14/2024 14:02:01 06/14/20 24 06/14/2024 CBC/C OMPLE TE BLD COUNT W/DIF F neutrophils, absolute count 3.73 x10'3 /uL 1.5-8. 0 Not Available [facility] (Lab) [address] [place], [address], 06/14/2024 14:02:01 06/14/20 24 06/14/2024 CBC/C OMPLE TE BLD COUNT W/DIF F lymphocytes, absolute count 1.31 x10'3 /uL 1.07-3 .43 Not Available [facility] (Lab) [address] [place], [address], 06/14/2024 14:02:01 06/14/20 24 06/14/2024 CBC/C OMPLE TE BLD COUNT W/DIF F monocytes, absolute count 0.48 x10'3 /uL 0.29-0 .99 Not Available [facility] (Lab) [address] [place], [address], 06/14/2024 14:02:01 06/14/20 24 06/14/2024 CBC/C OMPLE TE BLD COUNT W/DIF F eosinophils, absolute count 0.14 x10'3 /uL 0.02-0 .53 Not Available [facility] (Lab) [address] [place], [address], 06/14/2024 14:02:01 06/14/20 24 06/14/2024 CBC/C OMPLE TE BLD COUNT W/DIF F basophils, absolute count 0.04 x10'3 /uL 0.01-0 .08 Not Available [facility] (Lab) [address] [place], [address], 06/14/2024 14:02:01 06/14/20 24 06/14/2024 CBC/C OMPLE TE BLD COUNT W/DIF F immature granulocytes ,absolute 0.01 x10'3 /uL 0.00-0 .05 Not Available [facility] (Lab) [address] [place], [address], 06/14/2024 14:02:01 06/14/20 24 06/14/2024 CBC/C OMPLE TE BLD COUNT W/DIF F nucleated red blood cells 0.0 % -0 Not Available [facility] (Lab) [address] [place], [address], 06/14/2024 14:02:01 06/14/20 24 06/14/2024 CBC/C OMPLE TE BLD COUNT W/DIF F NRBC# 0.00 x10'3 /uL Not Available [facility] (Lab) [address] [place], [address], 06/14/2024 14:02:01 06/14/20 24 06/14/2024 URINA LYSIS COMPL ETE/I RIS W/RFX color YELLOW Not Available [facility] (Lab) [address] [place], [address], 06/14/2024 14:08:26 06/14/20 24 06/14/2024 URINA LYSIS COMPL ETE/I RIS W/RFX appear CLEAR Not Available [facility] (Lab) [address] [place], [address], 06/14/2024 14:08:26 06/14/20 24 06/14/2024 URINA LYSIS COMPL ETE/I RIS W/RFX specific gravity 1.025 1.001- 1.030 Not Available [facility] (Lab) [address] [place], [address], 06/14/2024 14:08:26 06/14/20 24 06/14/2024 URINA LYSIS COMPL ETE/I RIS W/RFX pH 6.0 pH_un its 5.0-9. 0 Not Available [facility] (Lab) [address] [place], [address], 06/14/2024 14:08:26 06/14/20 24 06/14/2024 URINA LYSIS COMPL ETE/I RIS W/RFX leukocytes NEGATI VE radha/u L negati ve- Not Available [facility] (Lab) [address] [place], [address], 06/14/2024 14:08:26 06/14/20 24 06/14/2024 URINA LYSIS COMPL ETE/I RIS W/RFX nitrite NEGATI VE negati ve- Not Available [facility] (Lab) [address] [place], [address], 06/14/2024 14:08:26 06/14/20 24 06/14/2024 URINA LYSIS COMPL ETE/I RIS W/RFX protein NEGATI VE mg/dL negati ve- Not Available [facility] (Lab) [address] [place], [address], 06/14/2024 14:08:26 06/14/20 24 06/14/2024 URINA LYSIS COMPL ETE/I RIS W/RFX glucose NORMAL mg/dL normal - Not Available [facility] (Lab) [address] [place], [address], 06/14/2024 14:08:26 06/14/20 24 06/14/2024 URINA LYSIS COMPL ETE/I RIS W/RFX ketones NEGATI VE mg/dL negati ve- Not Available [facility] (Lab) [address] [place], [address], 06/14/2024 14:08:26 08/21/06/14/2024 URINA LYSIS COMPL ETE/I RIS W/RFX urobilinogen NORMAL mg/dL normal - Not Available [facility] (Lab) [address] [place], [address], 06/14/2024 14:08:26 06/14/20 24 06/14/2024 URINA LYSIS COMPL ETE/I RIS W/RFX bilirubin NEGATI VE mg/dL negati ve- Not Available [facility] (Lab) [address] [place], [address], 06/14/2024 14:08:26 06/14/20 24 06/14/2024 URINA LYSIS COMPL ETE/I RIS W/RFX blood NEGATI VE mg/dL negati ve- Not Available [facility] (Lab) [address] [place], [address], 06/14/2024 14:08:26 06/14/20 24 06/14/2024 URINA LYSIS COMPL ETE/I RIS W/RFX white blood cells 0-8 /i??h pfi?? 0-8 Not Available [facility] (Lab) [address] [place], [address], 06/14/2024 14:08:26 06/14/20 24 06/14/2024 URINA LYSIS COMPL ETE/I RIS W/RFX red blood cells 0-4 /i??h pfi?? 0-4 Not Available [facility] (Lab) [address] [place], [address], 06/14/2024 14:08:26 06/14/20 24 06/14/2024 URINA LYSIS COMPL ETE/I RIS W/RFX bacteria NONE Not Available [facility] (Lab) [address] [place], [address], 06/14/2024 14:08:26 06/14/20 24 06/14/2024 URINA LYSIS COMPL ETE/I RIS W/RFX mucous OCCASI ONAL /i??l pfi?? abnormal Not Available [facility] (Lab) [address] [place], [address], 06/14/2024 14:08:26 06/14/20 24 06/14/2024 URINA LYSIS COMPL ETE/I RIS W/RFX squamous epithelial NONE /i??l pfi?? abnormal Not Available [facility] (Lab) [address] [place], [address], 06/14/2024 14:08:26 06/14/20 24 06/14/2024 COMPR EHENS SHAUN METAB OLIC PANEL sodium 143 mmol/ L 137-14 5 Not Available [facility] (Lab) [address] [place], [address], 06/14/2024 21:38:56 06/14/20 24 06/14/2024 COMPR EHENS SHAUN METAB OLIC PANEL potassium 4.1 mmol/ L 3.5-5. 1 Not Available [facility] (Lab) [address] [place], [address], 06/14/2024 21:38:56 06/14/20 24 06/14/2024 COMPR EHENS SHAUN METAB OLIC PANEL chloride 110 mmol/ L 98-107 high Not Available [facility] (Lab) [address] [place], [address], 06/14/2024 21:38:56 06/14/20 24 06/14/2024 COMPR EHENS SHAUN METAB OLIC PANEL carbon dioxide 26 mmol/ L 22-30 Not Available [facility] (Lab) [address] [place], [address], 06/14/2024 21:38:56 06/14/20 24 06/14/2024 COMPR EHENS SHAUN METAB OLIC PANEL anion gap 11.1 mmol/ L 14-22 low Not Available [facility] (Lab) [address] [place], [address], 06/14/2024 21:38:56 06/14/20 24 06/14/2024 COMPR EHENS SHAUN METAB OLIC PANEL glucose 111 mg/dL 70-99 high Not Available [facility] (Lab) [address] [place], [address], 06/14/2024 21:38:56 06/14/20 24 06/14/2024 COMPR EHENS SHAUN METAB OLIC PANEL BUN 15 mg/dL 8-19 Not Available [facility] (Lab) [address] [place], [address], 06/14/2024 21:38:56 06/14/20 24 06/14/2024 COMPR EHENS SHAUN METAB OLIC PANEL creatinine 0.83 mg/dL 0.66-1 .25 Not Available [facility] (Lab) [address] [place], [address], 06/14/2024 21:38:56 06/14/20 24 06/14/2024 COMPR EHENS SHAUN METAB OLIC PANEL GFR >60 Refer ence Range : [place] ge GFR Healt hy Adult : >60 [...] calcu lator is avail able on the [facility] websi te: https ://sean colunga.o medhat/pr ofess ional s/kdo qi/gf r_cal culat or Not Available [facility] (Lab) [address] [place], [address], 06/14/2024 21:38:56 06/14/20 24 06/14/2024 COMPR EHENS SHAUN METAB OLIC PANEL alkaline phosphatase 42 U/L 38-126 Not Available [facility] (Lab) [address] [place], [address], 06/14/2024 21:38:56 06/14/20 24 06/14/2024 COMPR EHENS SHAUN METAB OLIC PANEL alanine aminotransfe rase 30 U/L 0-50 Not Available [facility] (Lab) [address] [place], [address], 06/14/2024 21:38:56 06/14/20 24 06/14/2024 COMPR EHENS SHAUN METAB OLIC PANEL aspartate aminotransfe rase 39 U/L 15-46 Not Available [facility] (Lab) [address] [place], [address], 06/14/2024 21:38:56 06/14/20 24 06/14/2024 COMPR EHENS SHAUN METAB OLIC PANEL bilirubin, total 0.70 mg/dL 0.20-1 .30 Not Available [facility] (Lab) [address] [place], [address], 06/14/2024 21:38:56 06/14/20 24 06/14/2024 COMPR EHENS SHAUN METAB OLIC PANEL calcium 9.7 mg/dL 8.4-10 .2 Not Available [facility] (Lab) [address] [place], [address], 06/14/2024 21:38:56 06/14/20 24 06/14/2024 COMPR EHENS SHAUN METAB OLIC PANEL total protein 7.0 g/dL 6.3-8. 2 Not Available [facility] (Lab) [address] [place], [address], 06/14/2024 21:38:56 06/14/20 24 06/14/2024 COMPR EHENS SHAUN METAB OLIC PANEL albumin 4.3 g/dL 3.0-4. 4 Not Available [facility] (Lab) [address] [place], [address], 06/14/2024 21:38:56 06/14/20 24 06/14/2024 COMPR EHENS SHAUN METAB OLIC PANEL globulin 2.7 g/dL 2.6-4. 2 Not Available [facility] (Lab) [address] [place], [address], 06/14/2024 21:38:56 06/14/20 24 06/14/2024 COMPR EHENS SHAUN METAB OLIC PANEL A/G ratio 1.6 ratio 1.0-2. 0 Not Available [facility] (Lab) [address] [place], [address], 06/14/2024 21:38:56 06/14/20 24 06/14/2024 MAGNE SIUM magnesium 2.2 mg/dL 1.6-2. 3 Not Available [facility] (Lab) [address] [place], [address], 06/14/2024 17:00:41 06/14/2006/14/2024 LIPID PANEL cholesterol 141 mg/dL 140-19 9 NIH TEJINDER NSUS RECOM MENDA TION FOR PIPPA STERO L: ADULT CHILD LOW RISK: <200 <170 BORDE RLINE : <200- 239 ----- HIGH RISK: >240 >200 Not Available [facility] (Lab) [address] [place], [address], 06/14/2024 17:00:44 06/14/20 24 06/14/2024 LIPID PANEL triglyceride s 97 mg/dL 0-150 NIH TEJINDER NSUS REPOR T RECOM MENDA TION FOR TRIGL YCERI RADHA: ADULT CHILD LOW RISK: <150 ----- BODER LINE: 150-1 99 ----- HIGH RISK: >200 ----- Not Available [facility] (Lab) [address] [place], [address], 06/14/2024 17:00:44 06/14/20 24 06/14/2024 LIPID PANEL HDL cholesterol 46 mg/dL 40- Not Available [facility] (Lab) [address] [place], [address], 06/14/2024 17:00:44 06/14/20 24 06/14/2024 LIPID PANEL LDL cholesterol, calculated 76 mg/dL 0-130 NIH TEJINDER NSUS REPOR T RECOM MENDA TIONS FOR LDL: ADULT CHILD LOW RISK <130 <110 (OPTI MAL LDL) <100 ----- KAYLEIGHDE RLINE : 130-1 59 ----- HIGH RISK: >160 >130 A TRIGL YCERI DE RESUL T >400 INVAL IDATE S THE CALCU LATIO N FOR LDL FRACT IONAT ION - THE LDL RESUL T WILL NOT BE REPOR ENDY. Not Available [facility] (Lab) [address] [place], [address], 06/14/2024 17:00:44 06/14/20 24 06/14/2024 VITAM IN D 25-HY DROXY [id number] 83.5 NG/mL 30-100 Vitam in D Statu s: Defic ient: <20 ng/mL Insuf ficie nt: 20-29 ng/mL Suffi cient : 30-10 0 ng/mL Not Available [facility] (Lab) [address] [place], [address], 06/14/2024 17:39:32 06/14/20 24 06/14/2024 PSA SCREE N PSA medicare screen 1.50 NG/mL 0.00-4 .00 Not Available [facility] (Lab) [address] [place], [address], 06/14/2024 17:48:18 06/14/20 24 06/14/2024 TSH thyroid-stim ulating hormone 2.860 uIU/m L 0.465- 4.680 Not Available [facility] (Lab) [address] [place], [address], 06/14/2024 17:48:19 06/05/20 24 03/27/2024 XR, chest , 2 view No observ ation record ed. Not Available 2023 10:27:37 06/14/20 24 06/14/2024 RF, diaph ragm No observ ation record ed. [email or web address] [facility] [address] [place], [address], 12/18/2024 09:29:36 06/14/20 24 06/14/2024 RF, diaph ragm No observ ation record ed. [address] ([facility]) [address] [place], [address], 07/04/2024 09:27:22 07/25/20 24 07/18/2024 compl ete PFT w/ post [facility] hodil ator lindsey metry * No observ ation record ed. [email or web address] ([facility]) [address] [place], [address], 12/13/2024 15:39:52 12/06/19 25 12/06/2024 XR, chest , 2 view No observ ation record ed. [email or web address] [facility] [address], [place], [address], 12/13/2024 15:39:52 Result Notes None recorded. Problems Name Problem SNOMED Code Status Onset Date Resolution Date Notes Provider Name and Address Organization Details Recorded Time Nocturia 384509663 Completed Not Available [facility] 3 07:33:24 Herpes labialis 1776500 Active Not Available [facility] 3 07:33:24 Pain in throat 935111096 Completed Not Available [facility] 3 07:33:24 Acariasis 045960262 Completed Not Available [facility] 3 07:33:24 Plantar fasciitis 240559405 Active Not Available [facility] 3 07:33:24 Gastroeso phageal reflux disease 906293150 Active Not Available [facility] 3 07:33:25 Fluid level behind tympanic membrane Completed Not Available [facility] 3 07:33:25 Anemia 886846917 Completed Not Available [facility] 3 07:33:25 Osteopeni a 784633382 Active 2018 Not Available [facility] 3 07:33:25 Vitamin D deficienc y 27840915 Completed 201703/11/2021 Matty Lentz MD [address] [place], [address] , [employer] 3 09:02:13 Hypertens shaun disorder 17662389 Active 2018 Not Available [facility] 3 07:33:26 Cramp in lower limb 773916428 Completed Not Available [facility] 3 07:33:26 Coronary arteriosc lerosis 73212027 Active Not Available [facility] 3 07:33:27 Upper respirato ry infection 71488858 Completed Matty Lentz MD [address], [place], [address] , [employer] 4 09:18:49 Essential hypertens ion 49105835 Completed Not Available [facility] 3 07:33:27 Allergic rhinitis 38374233 Active 2017 Not Available [facility] 3 07:33:27 Prediabet es 270153348 Active 2018 Not Available [facility] 3 07:33:28 Posterior rhinorrhe a 53091421 Completed Not Available [facility] 3 07:33:28 Fatigue 87750470 Completed Esteban Nelson MD [address], [place], [address] , [employer] 4 10:52:42 Tinea corporis 36746536 Completed Not Available [facility] 3 07:33:28 Ex-smoker 2003312 Active 2021 Not Available [facility] 3 07:33:28 Bilateral hearing loss 00119792 Active 2017 Not Available [facility] 3 07:33:29 Hyperlipi demia 34324110 Active 2022 Matty Lentz MD [address], [place], [address] , [employer] 3 09:01:02 Vitamin D deficienc y 06761332 Active 2022 Matty Lentz MD [address], [place], [address] , [employer] 3 09:02:13 Atelectas is 42404898 Active 2023 Esteban Nelson MD [address], [place], [address] , [employer] 4 11:44:32 Impacted cerumen of bilateral ears 85249017407 44819 Active 2023 Matty Lentz MD [address], [place], [address] , [employer] 4 10:35:12 Upper respirato ry infection 04532331 Active 2023 Matty Lentz MD [address], [place], [address] , [employer] 4 09:18:49 Gastroeso phageal reflux disease without esophagit is 805327117 Active 2023 Matty Lentz MD [address], [address] [employer], [place], [address] , [employer] [facility] 4 09:18:49 Overweigh t 723780431 Active 2023 Matty Lentz MD [address], [address] [facility], [place], [address] , [employer] [facility] 4 09:40:42 Chronic cough 26568564 Active 2023 Esteban Nelson MD [address] [employer], [place], [address] , [employer] [facility] 4 15:03:56 Cough 31273327 Active 2024 Matty Lentz MD [address] [place], [address] , [employer] [facility] 5 15:40:13 Bronchiti s 60461271 Active 2024 Matty Lentz MD [address] [place], [address] , [employer] [employer] [facility] 5 15:40:20 Sinusitis [id number] Active 2024 Matty Lentz MD [address], [address] [facility], [place], [address] , [employer] [facility] 5 15:43:02 Notes:Medical History: Bilat eral hearing loss Left [...] hip fracture surgery 2004 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 Procedures Surgical History Date Name Laterality Status Provider Name and Address Organization Details Recorded Time 4 Ear Irrigation completed Matty Lentz MD [address] [facility], [address], [place], [address], [place] [facility] 07/04/2024 09:19:27 Imaging Results Imaging Date Name Status LastModified by Organization Details LastModified Time 03/27/2024 XR, chest, 2 view completed [email or web address] Informa tion not available 06/14/2024 10:27:37 06/14/2024 RF, diaphragm completed [email or web address] [facility] [address] [place], [address], 12/18/2024 09:29:36 06/14/2024 RF, diaphragm completed [email or web address] [facility] ([facility]) [address] [place], [address], 07/04/2024 09:27:22 07/18/2024 complete PFT w/ post bronchodilator spirometry* completed [email or web address] [facility] ([facility]) [address] [place], [address], 12/13/2024 15:39:52 12/06/2024 XR, chest, 2 view completed [email or web address] [facility] [address] [facility] [address], [address], 12/13/2024 15:39:52 Procedure Notes None recorded. Medical Equipment None Reported. Allergies No known drug allergies Medications Name Sig Start Date Stop Date Status Note LastModified by Organization Details LastModified Time amoxicilli n 500 mg capsule 02/25 completed Not Available Not Available Not Available prednisone 10 mg tablet Take 1 tablet every day by oral route as directed for 7 days. active Not Available Not Available No t Available Vitamin C 500 mg tablet Take [...] 1 T PO D FOR 4 DAYS active Not Available Not Available No t Available aspirin 325 mg tablet Take 1 [...] EVERY 8 HOURS FOR 10 DAYS NEEDED active Not Available Not Available No t Available valacyclov ir 1 gram tablet Take [...] l 75 mg tablet TAKE 1 TABLET DAILY active Not Available Not Available No t Available valacyclov ir 500 mg tablet Take 1 tablet twice a day by oral route as directed for 5 days. 07/18 completed Not Available Not Available Not Available aspirin 81 mg tablet,del ayed release TAKE 1 TABLET DAILY active Not Available Not Available No t Available amoxicilli n 500 mg tablet Take 1 tablet every 8 hours by oral route for 14 days. 10/03 completed Not Available Not Available Not Available pravastati n 80 mg tablet TAKE 1 TABLET DAILY active Not Available Not Available No [...] Not Available Not Available No t Available codeine 10 mg-guaifen esin 100 mg/5 mL oral liquid Take 10 mL every 8 hours by oral route as needed for 7 days. 2024 active Not Available Not Available Not Avai lable pravastati n 20 mg tablet Take 1 [...] ended release 24 hr TAKE 1 TABLET DAILY active Not Available Not Available No t Available levofloxac in 750 mg tablet TAKE 1 TABLET BY MOUTH EVERY DAY FOR 7 DAYS DIRECTED 04/03 completed Not Available Not Available Not Available methylpred nisolone 4 mg tablets in a dose pack FOLLOW PACKAGE DIRECTIO NS active Not Available Not Available No t Available albuterol sulfate HFA 90 mcg/actuat ion aerosol inhaler Inhale 2 puffs every 4-6 hours by inhalati on route as needed. 07/18 completed Not Available Not Available Not Available loratadine 10 mg tablet TAKE 1 TABLET DAILY IN THE MORNING active Not Available Not Available No t Available amoxicilli n 875 mg-potassi um clavulanat e 125 mg tablet Take 1 tablet every 12 hours by oral route as directed for 10 days. active Not Available Not Available No t Available esomeprazo le magnesium 20 mg capsule,de layed release TAKE ONE CAPSULE DAILY BEFORE A MEAL active Not Available Not Available No t Available amoxicilli n-potassiu m clavulanat e 1,000 mg-62.5 mg tablet,ext .rel 12hr active Not Available Not Available No t Available ezetimibe 10 mg tablet TAKE 1 TABLET DAILY active Not Available Not Available No [...] 2014 active Not Available Not Available Not Avmarcelina boateng Interse 1.5 billion cell capsule Take 1 capsule every day by oral route in the morning for 30 days. 04/26 completed Not Available Not Available Not Available Jublia 10 % topical solution with applicator 12/16 completed Not Available Not Available Not Available Flonase Allergy Relief 50 mcg/actuat ion nasal spray,susp ension [place] 1 spray every day by intranas al [...] Updated DateTime 4 167.64 cm 30.7 kg/m2 34664.5 5 g 59 /min 98 % 98 % 97.4 [degF] 138 mm[Hg] 72 mm[Hg] Ren Nunes CMA [facility] [employer] [facility] 4 11:33:12 Date Recorded Heart rate Respiratory rate Provider N mario and Address Organization Details Last Updated DateTime 05/29/2024 59 /min 15 /min Esteban Nelson MD [address], [address] [place], [address], [facility] [employer] [facility] 05/29/2024 12:14:42 Date Recorded Body height Body mass index (BMI) Body weight Body temperature Heart rate Respiratory rate Oxygen saturation Oxygen saturation in Arterial blood by Pulse oximetry Systolic blood pressure Diastolic blood pressure Provider Name and Address Organization Details Last Updated DateTime 4 167.64 cm 28.7 kg/m2 00697.7 9 g 98.1 [degF] 52 /min 16 /min 98 % 98 % 134 mm[Hg] 78 mm[Hg] Wellington Kelly [facility] [employer] [facility] 4 10:19:44 Date Recorded Body height Body mass index (BMI) Body weight Body temperature Heart rate Respiratory rate Oxygen saturation Oxygen saturation in Arterial blood by Pulse oximetry Systolic blood pressure Diastolic blood pressure Provider Name and Address Organization Details Last Updated DateTime 4 167.64 cm 28.9 kg/m2 73185.3 8 g 97.7 [degF] 64 /min 20 /min 99 % 99 % 132 mm[Hg] 74 mm[Hg] Wellington Kelly [facility] [employer] [facility] 4 09:23:51 Date Recorded Body height Body mass index (BMI) Body weight Body temperature Respiratory rate Oxygen saturation Oxygen saturation in Arterial blood by Pulse oximetry Systolic blood pressure Diastolic blood pressure Provider Name and Address Organization Details Last Updated DateTime 4 167.64 cm 30.5 kg/m2 60873.9 6 g 97.4 [degF] 16 /min 98 % 98 % 130 mm[Hg] 78 mm[Hg] Ophelia Grayson MA [facility] [employer] [facility] 4 15:13:08 Date Recorded Heart rate Heart rate Provider Name and Address Organization Details Last Updated DateTime 07/18/2024 61 /min 61 /min Esteban Nelson MD [address], [facility] [address], [place], [address], [facility] [employer] [facility] 07/18/2024 15:39:39 Date Recorded Body height Body mass index (BMI) Body weight Body temperature Oxygen saturation Oxygen saturation in Arterial blood by Pulse oximetry Heart rate Systolic blood pressure Diastolic blood pressure Provider Name and Address Organization Details Last Updated DateTime 5 167.64 cm 31.6 kg/m2 10901.1 g 97.2 [degF] 98 % 98 % 74 /min 140 mm[Hg] 84 mm[Hg] Sulema Giraldo RN [facility] [employer] [facility] 5 15:38:53 Social History Question Answer Notes LastModified by Organizat ion Details LastModified Time Tobacco Smoking Status Never Smoker TANNER Muro, [facility] [employer] [facility] 05/29/2024 11:38:39 Do You Have An Advance Directive? Yes MIGRATION.[id number] Information not available 12/23/2022 What Is Your Level Of Alcohol Consumption? Moderate MIGRATION.89805 59298 Information not available 12/23/2022 Do You Wear A Helmet When Biking? No MIGRATION.18699 14109 Information not available 12/23/2022 Are You Blind Or Do You Have Difficulty Seeing? No MIGRATION.31424 41959 Information not available 12/23/2022 What Is Your Level Of Caffeine Consumption? Moderate MIGRATION.84132 74412 Information not available 12/23/2022 How Much Tobacco Do You Chew? None MIGRATION.80296 46897 Information not available 12/23/2022 In The 14 Days Before Symptom Onset, Have You Had Close Contact With A Laboratory-confi rmed COVID-19 While That Case Was Ill? No MIGRATION.90260 12122 Information not available 12/23/2022 In The 14 Days Before Symptom Onset, Have You Had Close Contact With A Person Who Is Under Investigation For COVID-19 While That Person Was Ill? No MIGRATION.58024 30613 Information not available 12/23/2022 Are You Deaf Or Do You Have Serious Difficulty Hearing? Yes MIGRATION.72061 81634 Information not available 12/23/2022 What Type Of Diet Are You Following? REGULAR MIGRATION.27279 06459 Information not available 12/23/2022 Which Illicit Or Recreational Drugs Have You Used? None MIGRATION.96175 30046 Information not available 12/23/2022 Do You Or Have You Ever Used E-cigarettes Or Vape? Never Used Electronic Cigarettes MIGRATION.65478 33324 Information not available 12/23/2022 What Is Your Occupation? Retired MIGRATION.48895 35839 Information not available 12/23/2022 Have There Been Any Changes To Your Family Or Social Situation? No MIGRATION.45049 73119 Information not available 12/23/2022 What Is The Fluoride Status Of Your Home? Unknown MIGRATION.28147 07162 Information not available 12/23/2022 Are There Any Guns Present In Your Home? No MIGRATION.39792 03626 Information not available 12/23/2022 Do You Use Insect Repellent Routinely? No MIGRATION.73975 71468 Information not available 12/23/2022 Where Do You Live? [facility] MIGRATION.18306 23671 Information not available 12/23/2022 Do You Have A Medical Power Of Esl Instructor? Yes MIGRATION.77119 52316 Information not available 12/23/2022 Do You Have Any Pets? Yes MIGRATION.44774 80563 Information not available 12/23/2022 What Is Your Relationship Status? MIGRATION.69791 26394 Information not available 12/23/2022 Do You Use Your Seat Belt Or Car Seat Routinely? Yes MIGRATION.41384 30177 Information not available 12/23/2022 Do You Have Smoke And Carbon Monoxide Detectors In Your Home? Yes MIGRATION.54258 08861 Information not available 12/23/2022 Are You Passively Exposed To Smoke? No MIGRATION.34106 00329 Information not available 12/23/2022 Do You Or Have You Ever Used Smokeless Tobacco? Never Used Smokeless Tobacco MIGRATION.15842 14651 Information not available 12/23/2022 Are There Any Smokers In Your House? No MIGRATION.78225 67995 Information not available 12/23/2022 How Much Tobacco Do You Smoke? No MIGRATION.63345 27034 Information not available 12/23/2022 Do You Participate In Social Media? No MIGRATION.70110 25214 Information not available 12/23/2022 Do You Feel Stressed (tense, Restless, Nervous, Or Anxious, Or Unable To Sleep At Night)? [email or web address] Information not available 05/29/2024 Do You Use Sunscreen Routinely? Yes MIGRATION.13478 46308 Information not available 12/23/2022 Have You Recently Traveled Abroad? No MIGRATION.73492 95856 Information not available 12/23/2022 Are You Currently In School? No MIGRATION.58721 26561 Information not available 12/23/2022 Do You Have Any Dietary Restrictions? No MIGRATION.91805 92834 Information not available 12/23/2022 Sex: Male Functional Status Question Answer Note LastModified by Organizat ion Details LastModified Time Do you have difficulty walking or climbing stairs? No MIGRATION.8084878 026 Information not available 12/23/2022 Do you have transportation difficulties? No MIGRATION.9846800 026 Information not available 12/23/2022 Are you able to walk? YESWOREST MIGRATION.1960999 026 Information not available 12/23/2022 Do you have difficulty doing errands alone? No MIGRATION.3225987 026 Information not available 12/23/2022 Are you able to care for yourself? Yes MIGRATION.0470433 026 Information not available 12/23/2022 Do you have difficulty dressing or bathing? No MIGRATION.0134165 026 Information not available 12/23/2022 What is your exercise level? Moderate MIGRATION.8949868 026 Information not available 12/23/2022 Mental Status Question Answer Note LastModified by Organizat ion Details LastModified Time Do you have difficulty concentrating, remembering or making decisions? No MIGRATION.[id number] 6 Information not available 12/23/2022 Family History Relationship Description Onset Age of this Age Resolved Age Notes LastModified by Organization Details LastModified Time Father Malignant neoplastic disease MIGRATION.700 [id number] Not available 12/23/2022 07:27:27 Mother Malignant neoplasm of uterus MIGRATION.722 [id number] Not available 12/23/2022 07:27:27 Brother Liver problem MIGRATION.606 [id number] Not available 12/23/2022 07:27:27 Medical History No medical history recorded. Immunizations Vaccine Type Date Status Note Provider Nam e and Address Organization Details Recorded Time Influenza, high-dose, quadrivalent, PF 3 completed HAMILTON Powers [place] - [employer] [facility] 07/23/2023 11:14:51 RSV, recombinant, protein subunit RSVpreF, adjuvant reconstituted, 0.5 mL, PF 4 completed Roxy rangel [facility] 12/27/2023 08:17:06 COVID-19, mRNA, LNP-S, PF, deep-sucrose, 30 mcg/0.3 mL 4 completed Roxy rangel [facility] 07/25/2024 16:13:27 COVID-19, mRNA, LNP-S, PF, 100 mcg/0.5mL dose or 50 mcg/0.25mL dose 1 completed Not Available [facility] 12/23/2022 07:40:41 Influenza, high-dose, quadrivalent, PF 9 completed Not Available [facility] 12/23/2022 07:40:41 Influenza, high-dose, trivalent, PF 6 completed Not Available [facility] 12/23/2022 07:40:41 Influenza, split virus, trivalent, preservative 5 completed Not Available [facility] 12/23/2022 07:40:41 zoster live 5 completed Not Available [facility] 12/23/2022 07:40:41 Pneumococcal conjugate PCV 13 5 completed Not Available [facility] 12/23/2022 07:40:41 Influenza, split virus, trivalent, preservative 4 completed Not Available [facility] 12/23/2022 07:40:42 Influenza, high-dose, trivalent, PF 8 completed Not Available [facility] 12/23/2022 07:40:42 Influenza, high-dose, trivalent, PF 7 completed Not Available [facility] 12/23/2022 07:40:42 pneumococcal polysaccharide PPV23 7 completed Not Available [facility] 12/23/2022 07:40:42 Tdap 5 completed Not Available [facility] 12/23/2022 07:40:42 Pneumococcal conjugate PCV 13 5 completed Not Available [facility] 12/23/2022 07:40:42 Past Encounters Encounter ID Performer Location Encounter Start Date Encounter Closed Date Diagnosis/Indication Diagnosis SNOMED-CT Code Diagnosis ICD10 Code Diagnosis Note [id number] [facility] [address] [place] [address] 02/25/2021 00:00:00 02/25/2021 09:59:[id number] [facility] [address] [place] [address] 02/26/2021 00:00:00 02/26/2021 11:03:[id number] [facility] [address] [place] [address] 03/11/2021 00:00:00 03/11/2021 09:55:[id number] [facility] [address] [place] [address] 02/23/2022 00:00:00 02/23/2022 09:24:38 [id number] [facility] [address] [place] [address] 03/12/2022 00:00:00 03/12/2022 14:40:16 [id number] [facility] [address] [place] [address] 04/08/2022 00:00:00 04/08/2022 16:43:59 [id number] Matty Lentz MD [facility] [address] [place] [address] 03/15/2023 08:44:10 03/15/2023 09:21:32 Hypertensive disorder 99446834 I10 Gastroesop hageal reflux disease 658693869 K21.9 Obesity 361844456 E66.9 Hyperlipidemia 58535851 E78.5 Screening for malignant neoplasm of prostate 579540592 Z12.5 Vitamin D deficiency 347 76268 E55.9 Bilateral hearing loss 19501274 H91.93 Coronary arteriosclerosis 44018143 I25.10 Ex-smoker 8365302 Z87.89 1 [id number] Matty Lentz MD [facility] [address] [place] [address] 10/22/2023 09:02:16 10/22/2023 09:42:28 Seen in emergency clinic [id number] Z76.89 UC Pneumonia 260773242 J18. 9 Cough 15869787 R05.9 Nasal congestion 5894822 0 R09.81 Fatigue 51405788 R53.83 Hypertensive disorder 38 420254 I10 Hyperlipidemia 00005620 E78.5 [id number] Matty Lentz MD [address] [address] 04/03/2024 15:49:59 04/03/2024 16:10:56 Cough 59003590 R05.9 Bronchitis 69165311 J40 Nasal congestion 3443067 0 R09.[id number] [facility] Pulmonolo gy [address] [address] 05/29/2024 11:24:31 05/29/2024 15:30:24 Chronic cough 69737345 R05.3 R06.00 T78.40XA D89.9 Atelectasis 65515491 J98 .11 [id number] Matty Lentz MD [address] [address] 06/14/2024 10:13:42 06/14/2024 10:45:40 Hypertensive disorder 51277003 I10 Gastroesop hageal reflux disease 866117604 K21.9 Obesity 767855394 E66.9 Hyperlipidemia 46544830 E78.5 Screening for malignant neoplasm of prostate 500640479 Z12.5 Vitamin D deficiency 347 94341 E55.9 Bilateral hearing loss 70158360 H91.93 Coronary arteriosclerosis 16653717 I25.10 Ex-smoker 9827655 Z87.89 1 Gastroesop hageal reflux disease without esophagitis 478979810 K21.9 Upper resp iratory infection 63394516 J06.9 Impacted c erumen of bilateral ears 0092701335 999511 H61.23 [id number] Matty Lentz MD [address] [address] 07/04/2024 09:15:14 07/04/2024 09:43:28 Hypertensive disorder 94123328 I10 Gastroesop hageal reflux disease 898379900 K21.9 Hyperlipidemia 53471277 E78.5 Vitamin D deficiency 347 81534 E55.9 Improved Bilateral hearing loss 61505811 H91.93 Coronary arteriosclerosis 77950024 I25.10 Ex-smoker 5005212 Z87.89 1 Gastroesop hageal reflux disease without esophagitis 457233455 K21.9 Impacted c erumen of bilateral ears 1171940339 574109 H61.23 Overweight 428132903 E66 .3 [id number] Esteban Nelson MD [facility] Pulmonolo gy [address] [address] 07/18/2024 14:58:42 07/19/2024 15:31:15 Chronic cough 14837425 R05.3 R06.00 T78.40XA D89.9 Atelectasis 00866068 J98 .11 [id number] Matty Lentz MD [facility] [address] 12/13/2024 15:26:05 12/13/2024 15:46:50 Seen in emergency clinic 982550705 Z76.89 UC Cough 89967991 R05.9 Sinusitis 76960716 J32.9 Health Concerns Section Related Observation LastModified by Organization Detai ls LastModified Time None Recorded Concern Status LastModified by Organization Details LastModified Time None Recorded Advance Directives Directive Y: Payers Encounter Date Sequence Insurance Name Policy Number Policy Avila Covered Member ID Avila Member ID Guarantor Name 05/29/2024 1 [employer] (MEDICARE REPLACEMENT PPO) [id number] 1 Felix V Sandeep [id number] Felix V Laurel 06/14/2024 1 [employer] (MEDICARE REPLACEMENT PPO) [id number] 1 Felix V Laurel [id number] Felix V Laurel 07/04/2024 1 [employer] (MEDICARE REPLACEMENT PPO) [id number] 1 Felix V Laurel [id number] Felix V Laurel 07/18/2024 1 [employer] (MEDICARE REPLACEMENT PPO) [id number] 1 Felix Hopkins [id number] Felix Hopkins 12/13/2024 1 [employer] (MEDICARE REPLACEMENT PPO) [id number] 1 Felix Hopkins [id number] Felix Hopkins Notes Date Note Type Note Provider Name and Address Organization Details Recorded Time 05/29/2024 text/html Primary care/Referring provider: Matty Lentz [...] Heartburn: no Edema: no Modified [employer] (mMRC) Dyspnea Scale - Grade 1 Grade [...] dressing . Environmental exposures: Nicotine smoke: no [place]: no Dye: no Dust mites: yes Mold: no Damp basement: no Wood burning stove: no Animal dander: dog, cockatiel [id number] Cockroaches: no Pollen: yes Arsenic: no Asbestos: no Beryllium: no Cadmium: no Chromium: no Pettis smoke: no Diesel fumes: no Nickel: no [...] chance of dozing. Esteban Nelson MD [address] [facility] [address] [address], [place], [address], [employer] 05/29/2024 12:19:32 06/14/2024 text/html Pt is here for h is annual exam. Doing overall well and denies any concerns. Denies any problems with meds.Pt is not checking his BP at home.Pt is f/u with his [employer] Consultant and had angiogram done with him and it was same as before, no stents needed. No changes in any of his meds.Doing well with his GERD and no concerns with it. Denies any blood in stool. Matty Lentz MD [address] [employer], [place], [address], [employer] 06/14/2024 10:40:23 07/04/2024 text/html Pt is here for f /u on his annual labs and b/l ear flushing. Doing overall well and denies any concerns. Denies any problems with meds.Pt is not checking his BP at home.Pt is f/u with his [employer] Consultant and had angiogram done with him and it was same as before, no stents needed. No changes in any of his meds.Doing well with his GERD and no concerns with it. Denies any blood in stool. Matty Lentz MD [address], [place], [address], [employer] 07/04/2024 09:41:41 07/18/2024 text/html Primary care/Referring provider: [...] noPalpitations: noHeartburn: noEdema: no Modified [employer]bbins (mMRC) Dyspnea Scale - Grade 1Grade 0 [...] chance of dozing. Esteban Nelson MD [address], [place], [address], [facility] [employer] [facility] 07/18/2024 15:39:47 12/13/2024 text/html ACV: C/o congestion, sinus pressure, yellowish drainage, cough for last 2 weeks that is still not gone. Pt went to 1 week ago for this and got swabs and x-ray done and he was given 3 meds from them. He got better, but still not back to his normal. No other symptoms/concern. Matty Lentz MD [address], [place], [address], [facility] [employer] [facility] [employer] 12/13/2024 15:48:48
--- OUTSIDE RECORDS SUMMARY | 2025-01-18 08:48 | XMS_ITS | Clinical Summary ---
Author Organization [facility] [address] Address [address] [place] [address] Care Team Providers Care Credit Department Manager Name Role Phone Matty Lentz MD Primary Care Provider [phone] Allergies No known active allergies Medications multivitamin [...] artery disease of n ative artery of [place] heart with stable angina pectoris ([facility]) 08/05/2015 Overview (01/28/2017): Coronary artery disease involving [place] coronary artery of [place] heart with angina pectoris Resolved Problems Problem [...] on file Legal Sex Male 9:27 PM [employer] Gender Identity Not on file Sexual Orientation [...] Completed 017, 06/04/2015, 11/27/2014 Insurance AET MEDICARE [facility] MEDICARE Care Teams Credit Department Manager Relationship Specialty Start Date End Date Matty Lnetz MD [address] [place] [address] PCP - General Directory Operator 09/14/18
--- OUTSIDE RECORDS SUMMARY | 2025-01-18 08:48 | XMS_ITS | Clinical Summary ---
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
--- OUTSIDE RECORDS SUMMARY | 2025-01-18 08:48 | XMS_ITS | Referral Summary ---
Author Organization [facility] [address] Address [address] [place] [address] Care Team Providers Care Production Director Name Role Phone Matty Lentz MD Primary Care Provider [phone] Allergies No known active allergies Medications multivitamin [...] artery disease of n ative artery of [place] heart with stable angina pectoris ([facility]) 08/05/2015 Overview (01/28/2017): Coronary artery disease involving [place] coronary artery of [place] heart with angina pectoris Resolved Problems Problem [...] on file 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
== END 2025-01-18 09:19 | disposition home or self-care (01) ==
PROVIDERS: Emergency Provider Nurse Practitioner Family; PCP Family Medicine
DX: S40.011A Contusion of right shoulder, initial encounter (principal); V98.8XXA Other specified transport accidents, initial encounter; E78.00 Pure hypercholesterolemia, unspecified; K21.9 Gastro-esophageal reflux disease without esophagitis; Z79.82 Long term (current) use of aspirin
CPT/HCPCS: 73030; 99213; G0463

== ENCOUNTER 2025-02-12 06:48 | Outpatient (CLI) | payer MEDICARE, SELFPAY ==
[2025-02-12 07:52] LABS: Basophils Percent Auto 0.4 % (0.2-1.2); Eosinophils Absolute Auto 0.2 K/mm3 (0-0.3); Eosinophils Percent Auto 2.6 % (0-4.4); Hematocrit 39.3 % (42.0-52.0); Hemoglobin 12.7 g/dL (14.0-18.0); Immature Granulocyte Absolute 0.02 K/mm3 (0.00-0.031); Immature Granulocyte Percent A 0.3 % (0-0.5); Lymphocytes Absolute Auto 1.96 K/mm3 (0.9-3.2); Lymphocytes Percent Auto 27.8 % (18.3-44.2); Mean Corpuscular HGB Conc 32.3 g/dl (32-36); Mean Corpuscular Hemoglobin 30.4 pg (26-34); Mean Platelet Volume 10.9 fl (7.4-10.4); Monocytes Absolute Auto 0.7 K/mm3 (0.1-0.6); Monocytes Percent Auto 10.4 % (2.6-8.5); Neutrophils Absolute Auto 4.1 K/mm3 (1.3-6.7); Neutrophils Percent Auto 58.5 % (45.5-73.1); Platelet Count Result 199 k/mm3 (150-375); Red Blood Count 4.18 M/mm3 (4.6-6.20); Red Cell Distribution Width 12.6 % (11.5-14.5)
[2025-02-12 08:05] LABS: Alanine Aminotransferase 29 U/L (6-50); Albumin Level 4.1 g/dL (3.5-5.1); Alkaline Phosphatase 39 U/L (38-126); Anion Gap 7 mmol/L (4-12); Aspartate Amino Transferase 28 U/L (17-59); Bilirubin,Total 0.4 mg/dL (0.2-1.3); Blood Urea Nitrogen 18 mg/dL (9-20); Calcium 8.8 mg/dL (8.4-10.2); Carbon Dioxide 26 mmol/L (22-30); Chloride 108 mmol/L (98-107); Cholesterol 125 mg/dL (0-200); Estimated Glomerular Filt Rate > 60; Glucose 112 mg/dL (65-110); HDL Direct 35 mg/dL; Magnesium 2.1 mg/dL (1.6-2.3); Potassium 3.9 mmol/L (3.4-5.0); Sodium 141 mmol/L (137-145); Triglycerides 121 mg/dL (<150)
[2025-02-12 08:16] LABS: LDL Cholesterol Direct 59 mg/dL
[2025-02-14 02:48] LABS: TSH QUEST 3.21 mIU/L (0.40-4.50)
== END 2025-02-12 06:49 | disposition home or self-care (01) ==
PROVIDERS: PCP Family Medicine; Visit Provider Internal Medicine Cardiovascular Disease
DX: I25.10 Atherosclerotic heart disease of native coronary artery without angina pectoris (principal); I25.118 Atherosclerotic heart disease of native coronary artery with other forms of angina pectoris; R06.09 Other forms of dyspnea; I25.2 Old myocardial infarction; I97.630 Postprocedural hematoma of a circulatory system organ or structure following a cardiac catheterization; E78.2 Mixed hyperlipidemia; E66.811 Obesity, class 1
CPT/HCPCS: 36415; 80053; 80061; 83735; 84443; 85025